=== PATIENT | male | born 1970 | race Caucasian/White ===

== ENCOUNTER → 2017-04-25 | Outpatient (CLI) | payer MEDICARE ==
--- NOTE | 2017-04-25 08:34 | US ---
EXAMINATION TYPE: US abdomen limited DATE OF EXAM: 04/25/2017 COMPARISON: Ultrasound guided biopsy April 22, 2014 CLINICAL HISTORY: R74.8 Elevated Liver enzymes. EXAM MEASUREMENTS: Liver Length: 19.0 cm Gallbladder Wall: 0.4 cm CBD: 0.3 cm Right Kidney: 11.4 x 5.7 x 6.5 cm Pancreas: limited evaluation due to overlying bowel content Liver: enlarged, attenuating, hypoechoic area near rebecca hepatis = 1.7 x 1.6 x 2.2cm (probable focal sparing) Gallbladder: no evidence of stones Evidence for sonographic Gao's sign: No CBD: wnl Right Kidney: no evidence of hydronephrosis or mass Visualized liver remains heterogeneously hyperechoic in appearance. No intrahepatic ductal dilatation is evident. Evaluation for focal masses is suboptimal due to the heterogeneity. IMPRESSION: Heterogeneity of liver is likely on basis of diffuse fatty infiltration. No significant c hange from prior. Correlate with random biopsy results 2013
== END | disposition home or self-care (01) ==
LOC: RADUSWWP 07:03
PROVIDERS: ATTEND Family Medicine
DX: R93.2 Abnormal findings on diagnostic imaging of liver and biliary tract (principal)
CPT/HCPCS: 76705

== ENCOUNTER 2018-06-29 12:18 | Inpatient (IN) | payer MEDICARE ==
[2018-06-29] MEDS ORDERED: SODIUM CHLORIDE 0.9% 500 ML IV STA (12:37)
[2018-06-29] MEDS ORDERED: LORazepam 2 MG/ML INJ IV STA (12:38)
--- NOTE | 2018-06-29 12:38 | ED ---
General Adult HPI - General Chief complaint: Neuro Symptoms/Deficit Stated complaint: lt sided numbness, headache Time Seen by Provider: 06/29/18 12:20 Source: patient, RN notes reviewed Mode of arrival: wheelchair Limitations: no limitations - History of Present Illness Initial comments: This is a 47-year-old male who presents emergency Department with a past medical history significant for rheumatoid arthritis and is on Humira. Patient presents today because at about noon he started having tingling in his face his left arm and left leg. Patient states he never lost sensation just tingling sensation like his whole left side is going to sleep. Patient states he only residual tingling is now in his left hand. Patient also states he had an episode where he thought he passed out everything started turned black he thought he was going to go unconscious. Patient states he never had any chest pain denies difficulty breathing shortness of breath. Patient denies any abdominal pain patient denies nausea vomiting diarrhea. Patient also complains of recent headaches the been intermittent over the last month patient states he has not had a history of headaches prior to that. Patient also states he's been having night sweats and difficulty sleeping over the last month. - Related Data Home Medications Medication Instructions Recorded Confirmed Lisinopril [Zestril] 20 mg PO HS 04/19/14 06/29/18 traMADol HCl [Ultram] 50 mg PO TID PRN 04/19/14 06/29/18 Acetaminophen Tab [Tylenol] 500 - 1,000 mg PO Q6H PRN 06/29/18 06/29/18 Adalimumab [Humira Pen] 40 mg SQ MO 06/29/18 06/29/18 Atorvastatin [Lipitor] 40 mg PO HS 06/29/18 06/29/18 Hydrocodone/Acetaminophen [[place] 1 tab PO BID PRN 06/29/18 06/29/18 10-325] Ibuprofen [Motrin] 800 mg PO TID PRN 06/29/18 06/29/18 Allergies Allergy/AdvReac Type Severity Reaction Status Date / Time Sulfa (Sulfonamide Allergy Unknown Verified 06/29/18 13:06 Antibiotics) Review of Systems ROS Statement: Those systems with pertinent positive or pertinent negative responses have been documented in the HPI. ROS Other: All systems not noted in ROS Statement are negative. Past Medical History Past Medical History: Hypertension, Liver Disease Additional Past Medical History / Comment(s): arthritis, chronic ubaldo wrist pain from trauma History of Any Multi-Drug Resistant Organisms: None Reported Additional Past Surgical History / Comment(s): wrist surgery, hernia when pt was an Past Psychological History: Anxiety Smoking Status: Former smoker Past Alcohol Use History: Occasional Past Drug Use History: None Reported - Past Family History Father Family Medical History: No Reported History General Exam - General Exam Comments Initial Comments: GENERAL: Patient is well-developed and well-nourished. Patient is nontoxic and well- hydrated and is in mild distress. ENT: Neck is soft and supple. No significant lymphadenopathy is noted. Oropharynx is clear. Moist mucous membranes. Neck has full range of motion without eliciting any pain. EYES: The sclera were anicteric and conjunctiva were pink and moist. Extraocular movements were intact and pupils were equal round and reactive to light. Eyelids were unremarkable. PULMONARY: Unlabored respirations. Good breath sounds bilaterally. No audible rales rhonchi or wheezing was noted. CARDIOVASCULAR: There is a regular rate and rhythm without any murmurs gallops or rubs. ABDOMEN: Soft and nontender with normal bowel sounds. No palpable organomegaly was noted. There is no palpable pulsatile mass. SKIN: Skin is clear with no lesions or rashes and otherwise unremarkable. NEUROLOGIC: Patient is alert and oriented x3. Cranial nerves II through XII are grossly intact. Motor and sensory are also intact. Normal speech, volume and content. Symmetrical smile. MUSCULOSKELETAL: Normal extremities with adequate strength and full range of motion. No lower extremity swelling or edema. No calf tenderness. Patient has a contracture on his left fifth digit which she states is chronic. LYMPHATICS: No significant lymphadenopathy is noted PSYCHIATRIC: Normal psychiatric evaluation. Normal interpersonal interactions appears functionally intact in deals appropriately with others. No signs of depression. No signs of anxiety. Limitations: no limitations Course Vital Signs 06/29/18 06/29/18 12:23 13:21 Temperature 99.1 F Pulse Rate 100 86 Respiratory 16 16 Rate Blood Pressure 145/80 173/99 O2 Sat by Pulse 99 98 Oximetry Medical Decision Making - Medical Decision Making EKG shows normal sinus rhythm at 87 bpm GA interval 154 QRS is 96 QT interval 370 QTC is 454. Patient's EKG shows no ST segment elevation or depression or T wave abnormalities are noted. Computed tomography scan of the brain shows no acute abnormality. Chest x-ray shows no acute abnormality. Patient's symptoms have resolved at this time. Patient has had no near syncopal episodes in the emergency department. I spoke with Dr. De Dios she agreed to admit the patient admitted the patient I wrote admitting orders and consult neurology. - Lab Data Result diagrams: 06/29/18 12:40 06/29/18 12:40 Lab Results 06/29/18 06/29/18 06/29/18 Range/Units 12:40 12:40 12:40 WBC 5.1 (3.8-10.6) k/uL RBC 4.87 (4.30-5.90) m/uL Hgb 14.9 (13.0-17.5) gm/dL Hct 43.4 (39.0-53.0) % MCV 89.0 (80.0-100.0) fL MCH 30.5 (25.0-35.0) pg MCHC 34.3 (31.0-37.0) g/dL RDW 14.5 (11.5-15.5) % Plt Count 140 L (150-450) k/uL Neutrophils % 55 % Lymphocytes % 29 % Monocytes % 8 % Eosinophils % 5 % Basophils % 1 % Neutrophils # 2.8 (1.3-7.7) k/uL Lymphocytes # 1.5 (1.0-4.8) k/uL Monocytes # 0.4 (0-1.0) k/uL Eosinophils # 0.3 (0-0.7) k/uL Basophils # 0.0 (0-0.2) k/uL Poikilocytosis Slight PT (9.0-12.0) sec INR (<1.2) APTT (22.0-30.0) sec Sodium 141 (137-145) mmol/L Potassium 4.3 (3.5-5.1) mmol/L Chloride 109 H (98-107) mmol/L Carbon Dioxide 20 L (22-30) mmol/L Anion Gap 12 mmol/L BUN 15 (9-20) mg/dL Creatinine 0.95 (0.66-1.25) mg/dL Est GFR (CKD-EPI)AfAm >90 (>60 ml/min/1.73 sqM) Est GFR (CKD-EPI)NonAf >90 (>60 ml/min/1.73 sqM) Glucose 115 H (74-99) mg/dL Calcium 9.7 (8.4-10.2) mg/dL Total Bilirubin 0.9 (0.2-1.3) mg/dL AST 33 (17-59) U/L ALT 47 (21-72) U/L Alkaline Phosphatase 75 (38-126) U/L Total Creatine Kinase 43 L (55-170) U/L CK-MB (CK-2) 0.6 (0.0-2.4) ng/mL CK-MB (CK-2) Rel Index 1.4 Troponin I <0.012 (0.000-0.034) ng/mL Total Protein 7.4 (6.3-8.2) g/dL Albumin 4.7 (3.5-5.0) g/dL 06/29/18 Range/Units 12:40 WBC (3.8-10.6) k/uL RBC (4.30-5.90) m/uL Hgb (13.0-17.5) gm/dL Hct (39.0-53.0) % MCV (80.0-100.0) fL MCH (25.0-35.0) pg MCHC (31.0-37.0) g/dL RDW (11.5-15.5) % Plt Count (150-450) k/uL Neutrophils % % Lymphocytes % % Monocytes % % Eosinophils % % Basophils % % Neutrophils # (1.3-7.7) k/uL Lymphocytes # (1.0-4.8) k/uL Monocytes # (0-1.0) k/uL Eosinophils # (0-0.7) k/uL Basophils # (0-0.2) k/uL Poikilocytosis PT 10.0 (9.0-12.0) sec INR 1.0 (<1.2) APTT 27.1 (22.0-30.0) sec Sodium (137-145) mmol/L Potassium (3.5-5.1) mmol/L Chloride (98-107) mmol/L Carbon Dioxide (22-30) mmol/L Anion Gap mmol/L BUN (9-20) mg/dL Creatinine (0.66-1.25) mg/dL Est GFR (CKD-EPI)AfAm (>60 ml/min/1.73 sqM) Est GFR (CKD-EPI)NonAf (>60 ml/min/1.73 sqM) Glucose (74-99) mg/dL Calcium (8.4-10.2) mg/dL Total Bilirubin (0.2-1.3) mg/dL AST (17-59) U/L ALT (21-72) U/L Alkaline Phosphatase (38-126) U/L Total Creatine Kinase (55-170) U/L CK-MB (CK-2) (0.0-2.4) ng/mL CK-MB (CK-2) Rel Index Troponin I (0.000-0.034) ng/mL Total Protein (6.3-8.2) g/dL Albumin (3.5-5.0) g/dL Disposition Clinical Impression: Transient cerebral ischemia, Near syncope Disposition: ADMITTED IP TO THIS HOSP Referrals: Yonathan Funez MD [Primary Care Provider] - 1-2 days Time of Disposition: 13:58
[2018-06-29 13:01] LABS: ALT 47 U/L (21-72); AST 33 U/L (17-59); Albumin 4.7 g/dL (3.5-5.0); Alkaline Phosphatase 75 U/L (38-126); Anion Gap 12 mmol/L; Blood Urea Nitrogen 15 mg/dL (9-20); Calcium 9.7 mg/dL (8.4-10.2); Carbon Dioxide 20 mmol/L (22-30); Chloride 109 mmol/L (98-107); Glucose 115 mg/dL (74-99); Potassium 4.3 mmol/L (3.5-5.1); Sodium 141 mmol/L (137-145); Total Bilirubin 0.9 mg/dL (0.2-1.3); Total Protein 7.4 g/dL (6.3-8.2)
[2018-06-29 13:04] LABS: Partial Thromboplastin Time 27.1 sec (22.0-30.0)
--- NOTE | 2018-06-29 13:05 | CT ---
EXAMINATION TYPE: CT brain wo con DATE OF EXAM: 06/29/2018 COMPARISON: NONE HISTORY: Lt sided numbness, BUSTOS, dizziness CT DLP: 945.5 mGycm Automated exposure control for dose reduction was used. FINDINGS: Central structures are midline. There is no evidence of hydrocephalus. No acute focal lesion, mass ef fect or midline shift is seen. I do not see evidence of intracranial blood. Visualized portions of the paranasal sinuses and mastoids are clear. The bony calvarium is intact. IMPRESSION: NO ACUTE INTRACRANIAL ABNORMALITY.
--- NOTE | 2018-06-29 13:09 | XR ---
EXAMINATION TYPE: XR chest 2V DATE OF EXAM: 06/29/2018 HISTORY: altered mental status. REFERENCE: NONE. FINDINGS: The lungs are clear. Pleural spaces are clear. The heart is not enlarged. IMPRESSION: NORMAL CHEST.
[2018-06-29 13:12] LABS: Basophils % (A) 1 %; Eosinophils # (A) 0.3 k/uL (0-0.7); Eosinophils % (A) 5 %; HCT 43.4 % (39.0-53.0); HGB 14.9 gm/dL (13.0-17.5); Lymphocytes # (A) 1.5 k/uL (1.0-4.8); Lymphocytes % (A) 29 %; MCH 30.5 pg (25.0-35.0); MCHC 34.3 g/dL (31.0-37.0); Mean Platelet Volume 7.6; Monocytes # (A) 0.4 k/uL (0-1.0); Monocytes % (A) 8 %; Neutrophils # (A) 2.8 k/uL (1.3-7.7); Neutrophils % (A) 55 %; Platelet Count 140 k/uL (150-450); Poikilocytosis Slight; RBC 4.87 m/uL (4.30-5.90); RDW 14.5 % (11.5-15.5); WBC 5.1 k/uL (3.8-10.6)
[2018-06-29 13:16] LABS: Creatine Kinase 43 U/L (55-170)
[2018-06-29 13:29] LABS: Creatine Kinase MB 0.6 ng/mL (0.0-2.4); Troponin I <0.012 ng/mL (0.000-0.034)
[2018-06-29] MEDS ORDERED: MORPHINE SULFATE 4 MG/ML SYRINGE IVP STA (16:47)
[2018-06-29] MEDS ORDERED: VANCOMYCIN 2,000 MG in SODIUM CHLORIDE 0.9% 500 ML IVPB SCH (17:15)
--- NOTE | 2018-06-29 17:19 | P.HPIM ---
History of Present Illness H&P Date: 06/29/18 Chief Complaint: Headache, left-sided tingling Patient is a 47-year-old male with PMH of hypertension and rheumatoid arthritis that presents to the emergency department for headache, night sweats, left- sided tingling. Patient is accompanied by his who is giving me the history. Patient currently has a towel over his head, states he cannot speak because it worsens his migraine. Patient reports headache over the past 2 months, progressively getting worse. Over the last week, patient has been experiencing multiple episodes of nausea and vomiting, photophobia, tunnel vision. His headaches are also associated with fevers, night sweats, stiff neck. Patient reports that his headache started after his PCP started him on hydrochlorothiazide 12.5 mg by mouth daily. However, discontinuation of hydrochlorothiazide over the last 30 days has not resulted in relief of his headache. Patient decided to seek medical attention when he started to experience numbness and tingling that started in his left leg and worked up to his left lower base, neck, shoulder and arm. Of note patient sees a block mason, takes Humira injections. In the ED, CT of the head was negative. Chest x-ray was normal. EKG showed normal sinus rhythm. Patient is admitted for CVA workup. Review of Systems All systems: negative Past Medical History Past Medical History: Hypertension, Liver Disease Additional Past Medical History / Comment(s): arthritis, chronic ubaldo wrist pain from trauma History of Any Multi-Drug Resistant Organisms: None Reported Additional Past Surgical History / Comment(s): wrist surgery, hernia when pt was an infant Past Psychological History: Anxiety Smoking Status: Former smoker Past Alcohol Use History: Occasional Past Drug Use History: None Reported - Past Family History Father Family Medical History: No Reported History Medications and Allergies Home Medications Medication Instructions Recorded Confirmed Type Lisinopril [Zestril] 20 mg PO HS 04/19/14 06/29/18 History traMADol HCl [Ultram] 50 mg PO TID PRN 04/19/14 06/29/18 History Acetaminophen Tab [Tylenol] 500 - 1,000 mg PO Q6H PRN 06/29/18 06/29/18 History Adalimumab [Humira Pen] 40 mg SQ MO 06/29/18 06/29/18 History Atorvastatin [Lipitor] 40 mg PO HS 06/29/18 06/29/18 History Hydrocodone/Acetaminophen [[place] 1 tab PO BID PRN 06/29/18 06/29/18 History 10-325] Ibuprofen [Motrin] 800 mg PO TID PRN 06/29/18 06/29/18 History Allergies Allergy/AdvReac Type Severity Reaction Status Date / Time Sulfa (Sulfonamide Allergy Unknown Verified 06/29/18 13:06 Antibiotics) Physical Exam Vitals: Vital Signs Temp Pulse Resp BP Pulse Ox 06/29/18 14:30 16 06/29/18 14:21 97.8 F 78 16 171/88 98 06/29/18 13:21 86 16 173/99 98 06/29/18 12:23 99.1 F 100 16 145/80 99 Intake and Output 06/29/18 06/29/18 06/29/18 06:59 14:59 22:59 Other: Weight 104.326 kg General: Towel over his head, mild distress, appears at stated age Derm: warm, dry Head: atraumatic, normocephalic, symmetric Eyes: EOMI, no lid lag, anicteric sclera Mouth: no lip lesion, mucus membranes moist Cardiovascular: S1S2 reg, no murmur, positive posterior tibial pulse bilateral, Lungs: CTA bilateral, no rhonchi, no rales , no accessory muscle use Abdominal: soft, nontender to palpation, no guarding, no appreciable organomegaly Ext: no gross muscle atrophy, no edema, no contractures Neuro: CN II-XI grossly intact, no focal neuro deficits Psych: Alert, oriented, appropriate affect Results CBC & Chem 7: 06/29/18 12:40 06/29/18 12:40 Labs: Abnormal Lab Results - Last 24 Hours (Table) 06/29/18 06/29/18 06/29/18 Range/Units 12:40 12:40 12:40 Plt Count 140 L (150-450) k/uL Chloride 109 H (98-107) mmol/L Carbon Dioxide 20 L (22-30) mmol/L Glucose 115 H (74-99) mg/dL Total Creatine Kinase 43 L (55-170) U/L Thrombosis Risk Factor Assmnt - Choose All That Apply Each Factor Represents 1 point: Age 41-60 years Thrombosis Risk Factor Assessment Total Risk Factor Score: 1 Thrombosis Risk Factor Assessment Level: Low Risk Assessment and Plan Assessment: Assessment and plan 1. BUSTOS + L sided numbness - Likely to be Migraine but given history and PMH need to r/o CVA and Meningitis given immunocompromised state. - r/o CVA - CT brain negative - Pain control: Tylenol 500 mg PO Q6H, Toradol 30 mg IV Q6H PRN - Antibiotics: Ceftriaxone IV QD, Vancomycin IV - Patient is afebrile with no leukocytosis. Need to proceed with CVA workup. Start IV Abx empirically. FU MRI brain, Echo, CUS, A1c, Lipid panel, Neurology. FU Anesthesia for LP. 2. HTN: BP 171/88. Continue Lisinopril 20 mg PO QD. Monitor vitals, adjust medications as necessary. 3. RA: On Humira at home. Hold. 4. DVT/GI Prophylaxis: Lovenox 40 SUBCUT QD. Protonix 40 mg PO QD.
[2018-06-29] MEDS: cefTRIAXone IN SWFI 1,000 MG/10 ML SYRINGE IVP SCH (17:54)
[2018-06-29] MEDS: KETOROLAC 30 MG/ML 1 ML VIAL IVP SCH ×2 (19:53→23:14)
[2018-06-29] MEDS: HYDROcodone/APAP 10-325MG 1 EACH TAB PO PRN (21:10)
[2018-06-29] MEDS: ATORVASTATIN 40 MG TAB PO SCH (23:37)
[2018-06-29] MEDS: LISINOPRIL 20 MG TAB PO SCH (23:37)
[2018-06-29 23:51] LABS: Cholesterol 120 mg/dL (<200); HDL Cholesterol 29 mg/dL (40-60); LDL Cholesterol,Calculated 49 mg/dL (0-99); Triglycerides 210 mg/dL (<150)
--- NOTE | 2018-06-30 00:31 | P.CNNES ---
History of Present Illness Consult date: 06/29/18 Reason for Consult: Patient admitted with headaches and left sided numbness. History of Present Illness: This patient is a 47-year-old right-handed white male was brought into the emergency room today for evaluation of left-sided numbness and chronic headache. Patient was brought to [facility] ER for further evaluation due to his ongoing symptoms of chronic headache for the past 2 months. He also today developed left-sided numbness. He was seen in the ER by Dr. Xie. There was concern for possibility of TIA and he was sent for a computed tomography scan of the brain for further evaluation. CAT scan of the brain revealed no acute intracranial abnormality. His symptoms of left-sided numbness did resolve after one hour. Patient states that over the past 2 months he has been having chronic headaches. His primary care physician Dr. Funez apparently has not seen him recently. He was seen earlier this week by Dr. Velarde who is his chemical plant operator supervisor and is treating him for rheumatoid arthritis. He has been using Humira as his primary treatment for the rheumatoid condition. He has been following closely for the last several years with his chemical plant operator supervisor. Apparently he did complain of headaches to her recently but no other intervention was mentioned. The patient states he has been experiencing night sweats off-and-on for the past several months. He has had some low-grade temperatures as well. His temperature today in the emergency room was within normal limits at 97.1. He did not experience her complain of any symptoms of neck pain or nuchal rigidity. He did undergo a chest x-ray in the ER which was reported normal. The patient denies any previous history of TIA or stroke. Given his history of rheumatoid arthritis and immunocompromised state due to his long-term use of Humira he is at risk for subtle infection. Given his 2 month history of headache we have recommended he undergo a lumbar puncture tomorrow morning for further evaluation. Doubt that he has underlying meningitis but would proceed with LP at this time for further evaluation. As noted he is currently afebrile and has no signs of meningeal irritation or nuchal rigidity on examination at bedside today. We would recommend however to complete a lumbar puncture to rule out any LEGAL RECOVERY SPECIALIST infection. We have recommended the patient undergo a complete stroke evaluation given his episode of left-sided paresthesias and numbness. His stroke risk factors include hypertension and hyperlipidemia. The patient currently is on disability. He states he has been having chronic neck pain and joint pain due to his long-standing history of rheumatoid arthritis. He did not experience any slurred speech or visual changes with this recent episode of left-sided numbness. He does have a past history of fatty liver which apparently has been evaluated previously. The patient is now been admitted and neurology has been consulted for further evaluation and recommendations. Review of Systems Constitutional: Reports chronic headaches, Denies chills, Denies fever Eyes: denies blurred vision, denies pain Ears, nose, mouth and throat: Denies headache, Denies sore throat Cardiovascular: Denies chest pain, Denies shortness of breath Respiratory: Denies cough Gastrointestinal: Denies abdominal pain, Denies diarrhea, Denies nausea, Denies vomiting Musculoskeletal: Denies myalgias Integumentary: Denies pruritus, Denies rash Neurological: Reports headaches, Reports paresthesias, Reports tingling, Denies numbness, Denies weakness Psychiatric: Denies anxiety, Denies depression Endocrine: Denies fatigue, Denies weight change Past Medical History Past Medical History: Hypertension Additional Past Medical History / Comment(s): arthritis, chronic ubaldo wrist pain from trauma History of Any Multi-Drug Resistant Organisms: None Reported Additional Past Surgical History / Comment(s): wrist surgery, hernia when pt was an infant Past Anesthesia/Blood Transfusion Reactions: No Reported Reaction Past Psychological History: Anxiety Additional Psychological History / Comment(s): re procedure Smoking Status: Former smoker Past Alcohol Use History: Occasional Past Drug Use History: None Reported - Past Family History Father Family Medical History: No Reported History Medications and Allergies Home Medications Medication Instructions Recorded Confirmed Type Lisinopril [Zestril] 20 mg PO HS 04/19/14 06/29/18 History traMADol HCl [Ultram] 50 mg PO TID PRN 04/19/14 06/29/18 History Acetaminophen Tab [Tylenol] 500 - 1,000 mg PO Q6H PRN 06/29/18 06/29/18 History Adalimumab [Humira Pen] 40 mg SQ MO 06/29/18 06/29/18 History Atorvastatin [Lipitor] 40 mg PO HS 06/29/18 06/29/18 History Hydrocodone/Acetaminophen [[place] 1 tab PO BID PRN 06/29/18 06/29/18 History 10-325] Ibuprofen [Motrin] 800 mg PO TID PRN 06/29/18 06/29/18 History Allergies Allergy/AdvReac Type Severity Reaction Status Date / Time Sulfa (Sulfonamide Allergy Unknown Verified 06/29/18 13:06 Antibiotics) Physical Examination - Vital Signs Vital Signs: Vital Signs Temp Pulse Pulse Resp BP BP Pulse Ox 06/29/18 18:10 98.7 F 82 16 152/86 99 06/29/18 14:30 16 06/29/18 14:21 97.8 F 78 16 171/88 98 06/29/18 13:21 86 16 173/99 98 06/29/18 12:23 99.1 F 100 16 145/80 99 Intake and Output 06/29/18 06/29/18 06/30/18 14:59 22:59 06:59 Other: Weight 104.326 kg - Constitutional General appearance: average body habitus, cooperative - EENT EENT: PERRL, mucous membranes moist - Respiratory Respiratory: lungs clear, normal breath sounds - Cardiovascular Cardiovascular: regular rate, normal S1, normal S2 Extremities: no peripheral edema bilaterally - Gastrointestinal Gastrointestinal: normoactive bowel sounds - Integumentary Integumentary: normal - Neurologic Cranial nerve examination: PERRL, EOMI, VFF, V1/V2/V3 grossly intact, face symmetric, intact gag reflex, intact corneal reflex, normal palatal elevation Speech examination: intact Sensorimotor examination: intact Motor examination - right side: 4/5: biceps, triceps, wrist flexion, wrist extension, snowmobile mechanic, hip flexors, knee extensors, dorsiflexion, toe extension (EHL) , plantarflexion Motor examination - left side: 4/5: biceps, triceps, wrist flexion, wrist extension, snowmobile mechanic, hip flexors, knee extensors, dorsiflexion, toe extension (EHL) , plantarflexion Detailed sensory examination: intact Reflex and gait examination: intact Reflexes: 1+: ankle, bicep, knee, tricep - Musculoskeletal Musculoskeletal: no pain - Psychiatric Psychiatric: mood/affect appropriate, cooperative Results - Laboratory Findings CBC and BMP: 06/29/18 12:40 06/29/18 12:40 Abnormal Lab Findings: Abnormal Labs 06/29/18 06/29/18 06/29/18 12:40 12:40 12:40 Plt Count 140 L Chloride 109 H Carbon Dioxide 20 L Glucose 115 H Total Creatine Kinase 43 L Triglycerides HDL Cholesterol 06/29/18 12:40 Plt Count Chloride Carbon Dioxide Glucose Total Creatine Kinase Triglycerides 210 H HDL Cholesterol 29 L Assessment and Plan (1) TIA (transient ischemic attack) Current Visit: Yes Status: Acute Code(s): G45.9 - TRANSIENT CEREBRAL ISCHEMIC ATTACK, UNSPECIFIED SNOMED Code(s): 627683108 (2) Chronic headache Current Visit: Yes Status: Acute Code(s): R51 - HEADACHE SNOMED Code(s): 702606449 (3) Rheumatoid arthritis Current Visit: Yes Status: Acute Code(s): M06.9 - RHEUMATOID ARTHRITIS, UNSPECIFIED SNOMED Code(s): 67020433 (4) Near syncope Current Visit: Yes Status: Acute Code(s): R55 - SYNCOPE AND COLLAPSE SNOMED Code(s): 262632326 Plan: This patient is a 47-year-old right-handed white male who was admitted to [facility] for evaluation of chronic headaches and left-sided numbness. Patient developed sudden left arm face and leg numbness that came on suddenly and lasted about 1 hour in duration and quickly resolved. He has been dealing with chronic headaches for over 2 months. He has a history of underlying rheumatoid arthritis and does follow with the chemical plant operator supervisor. He has been taking Humira as primary treatment for his RA. The patient was evaluated in the emergency room by Dr. Xie. He underwent a computed tomography scan of the brain which was reported normal with no acute intracranial abnormality. On examination at bedside the patient is afebrile. He has no nuchal rigidity or neck stiffness on examination. We have recommended the patient to complete a lumbar puncture tomorrow morning to rule out any signs of infection given his immunocompromised state secondary to his rheumatoid arthritis and long-term use of Humira. We have recommended a complete stroke evaluation for this patient. Sclerae history suggests right hemispheric TIA. We will order MRI/MRA of the brain for this patient. Further evaluation will be given ending his test results. His overall prognosis at this time remains guarded. We will continue close neurological follow-up with this patient during this admission. Time with Patient: Greater than 30
[2018-06-30] MEDS: KETOROLAC 30 MG/ML 1 ML VIAL IVP SCH ×4 (06:04→23:22)
[2018-06-30] MEDS: PANTOPRAZOLE 40 MG TABLET PO SCH (08:48)
[2018-06-30] MEDS: HYDROcodone/APAP 10-325MG 1 EACH TAB PO PRN (09:00)
--- NOTE | 2018-06-30 12:16 | ECHOF ---
Referral Reason:rule out CVA MEASUREMENTS -------- HEIGHT: 185.4 cm WEIGHT: 104.3 kg BP: 121/68 RVIDd: 3.4 cm (< 3.3) IVSd: 1.3 cm (0.6 - 1.1) LVIDd: 4.0 cm (3.9 - 5.3) LVPWd: 1.3 cm (0.6 - 1.1) IVSs: 1.8 cm LVIDs: 2.8 cm LVPWs: 1.5 cm LA Diam: 3.7 cm (2.7 - 3.8) LAESV Index (A-L): 20.41 ml/m Ao Diam: 2.7 cm (2.0 - 3.7) AV Cusp: 2.4 cm (1.5 - 2.6) MV EXCURSION: 15.618 mm (> 18.000) MV EF SLOPE: 101 mm/s (70 - 150) EPSS: 0.4 cm MV E Hansel: 0.85 m/s MV DecT: 284 ms MV A Hansel: 0.79 m/s MV E/A Ratio: 1.07 RAP: 5.00 mmHg RVSP: 20.73 mmHg FINDINGS -------- Sinus rhythm. This was a technically good study. The left ventricular size is normal. There is mild concentric left ventricular hypertrophy. Overa ll left ventricular systolic function is normal with, an EF between 55 - 60 %. The right ventricle is mildly enlarged. Normal LA size by volume 22+/-6 ml/m2. The right atrium is normal in size. The aortic valve is trileaflet and appears structurally normal. Mild mitral annular calcification present. There is trace to mild mitral regurgitation. Trace tricuspid regurgitation present. Right ventricular systolic pressure is normal at < 35 mmHg. Trace/mild (physiologic) pulmonic regurgitation. The aortic root size is normal. Normal inferior vena cava with normal inspiratory collapse consistent with estimated right atrial pre ssure of 5 mmHg. There is no pericardial effusion. CONCLUSIONS -------- 1. Sinus rhythm. 2. This was a technically good study. 3. The left ventricular size is normal. 4. There is mild concentric left ventricular hypertrophy. 5. Overall left ventricular systolic function is normal with, an EF between 55 - 60 %. 6. The right ventricle is mildly enlarged. 7. Normal LA size by volume 22+/-6 ml/m2. 8. The right atrium is normal in size. 9. The aortic valve is trileaflet and appears structurally normal. 10. Mild mitral annular calcification present. 11. There is trace to mild mitral regurgitation. 12. Trace tricuspid regurgitation present. 13. Right ventricular systolic pressure is normal at < 35 mmHg. 14. Trace/mild (physiologic) pulmonic regurgitation. 15. The aortic root size is normal. 16. Normal inferior vena cava with normal inspiratory collapse consistent with estimated right atrial pressure of 5 mmHg. 17. There is no pericardial effusion. [employer]: Sophie Orellana RDCS
[2018-06-30] MEDS: VANCOMYCIN 1,750 MG in SODIUM CHLORIDE 0.9% 500 ML IVPB SCH ×2 (12:48→21:03)
--- NOTE | 2018-06-30 13:48 | P.PN ---
Subjective Progress Note Date: 06/30/18 Principal diagnosis: headache. Patient was seen and examined. No acute events overnight.patient reports great improvement in his headache since yesterday. Patient states that the morphine injection yesterday did not work, however the combination of [place] and Toradol injections has been working. patient currently states he has a 3 out of 10 headache, bifrontal, associated with photophobia and sensitivity to loud noises. No nausea or vomiting this morning. No fever or chills. Objective - Vital Signs Vital signs: Vital Signs Temp 97.2 F L 06/30/18 12:00 Pulse 72 06/30/18 12:00 Resp 18 06/30/18 12:00 BP 128/72 06/30/18 12:00 Pulse Ox 97 06/30/18 12:00 Intake & Output 06/29/18 06/30/18 06/30/18 18:59 06:59 18:59 Intake Total 980 240 Balance 980 240 Weight 104.326 kg Intake: Intake, IV Titration 500 Amount Vancomycin 2,000 mg In 500 Sodium Chloride 0.9% 500 ml @ 167 mls/hr IVPB Q24H [facility] Rx#:[id number] Oral 480 240 Other: Voiding Method Toilet # Voids 2 - Exam General: No acute distress, appears at stated age Derm: warm, dry Neck: Normal range of motion. no JVD. Brudzinski and Kernig sign negative. Head: atraumatic, normocephalic, symmetric Eyes: EOMI, no lid lag, anicteric sclera Mouth: no lip lesion, mucus membranes moist Cardiovascular: S1S2 reg, no murmur, positive posterior tibial pulse bilateral Lungs: CTA bilateral, no rhonchi, no rales , no accessory muscle use Abdominal: soft, nontender to palpation, no guarding, no appreciable organomegaly Ext: no gross muscle atrophy, no edema, no contractures Neuro: CN II-XI grossly intact, strength 5 out of 5 in all 4 extremities, sensation intact to touch in all 4 extremities Psych: Alert, oriented, appropriate affect - Labs CBC & Chem 7: 06/29/18 12:40 06/29/18 12:40 Labs: Abnormal Lab Results - Last 24 Hours (Table) 06/29/18 06/29/18 Range/Units 12:40 12:40 Total Creatine Kinase 43 L (55-170) U/L Triglycerides 210 H (<150) mg/dL HDL Cholesterol 29 L (40-60) mg/dL Assessment and Plan Assessment: Assessment and plan 1. BUSTOS + L sided numbness - Likely to be Migraine but given history and PMH need to r/o CVA and Meningitis given immunocompromised state. - r/o CVA - CT brain negative - Echo shows EF 55-60% - Lipid panel shows LDL 49 T. Chol 120 TG 210, [place] 10 BID PRN - Pain control: Tylenol 500 mg PO Q6H, Toradol 30 mg IV Q6H PRN - Antibiotics: Ceftriaxone IV QD, Vancomycin IV - Patient is afebrile with no leukocytosis. Need to proceed with CVA workup. Continue IV Abx empirically. FU MRI brain, MRA head and neck, A1c, Neurology. FU Anesthesia for LP. 2. HTN: BP 128/72. Continue Lisinopril 20 mg PO QD. Monitor vitals, adjust medications as necessary. 3. RA: On Humira at home. Hold. 4. DVT/GI Prophylaxis: Lovenox 40 SUBCUT QD. Protonix 40 mg PO QD.
--- NOTE | 2018-06-30 13:50 | US ---
EXAMINATION TYPE: US carotid duplex BILAT DATE OF EXAM: 06/30/2018 COMPARISON: NONE CLINICAL HISTORY: rule out CVA. Left-sided numbness. Headache. Dizziness. EXAM MEASUREMENTS: RIGHT: Peak Systolic Velocity (PSV) cm/sec ----- Right CCA: 84.2 ----- Right ICA: 82.7 ----- Right ECA: 68.6 ICA/CCA ratio: 1.0 RIGHT: End Diastole cm/sec ----- Right CCA: 17.3 ----- Right ICA: 30.4 ----- Right ECA: 10.9 LEFT: Peak Systolic Velocity (PSV) cm/sec ----- Left CCA: 69.7 ----- Left ICA: 73.9 ----- Left ECA: 82.6 ICA/CCA ratio: 1.1 LEFT: End Diastole cm/sec ----- Left CCA: 17.1 ----- Left ICA: 15.5 ----- Left ECA: 14.3 VERTEBRALS (direction of flow): Right Vertebral: Antegrade Left Vertebral: Antegrade Rhythm: Normal Minimal atherosclerotic changes. No significant velocity elevations. IMPRESSION: Mild degree of grayscale atheromatous plaquing with no sonographically evident hemodynam ically significant stenosis within either visualized carotid arterial system.
[2018-06-30] MEDS: ACETAMINOPHEN TAB 500 MG TAB PO PRN ×2 (16:23→21:14)
--- NOTE | 2018-06-30 17:16 | MR ---
EXAMINATION TYPE: MR angio head wo con DATE OF EXAM: 06/30/2018 COMPARISON: None HISTORY: chronic headaches x 2 months TECHNIQUE: Time of flight images focusing on the [place] were performed without contrast. FINDINGS: There is demonstration of arterial flow in the vertebrobasilar artery system. There is piero rial flow in the anterior middle and posterior cerebral arteries. There is arterial flow in both dist al internal carotid arteries. There is patency of the right posterior communicating artery. I see no evidence of aneurysm or neovascularity. There is no mass effect. There is no evidence of stenosis. IMPRESSION: Normal MR angiogram of the brain.
[2018-06-30] MEDS: cefTRIAXone IN SWFI 1,000 MG/10 ML SYRINGE IVP SCH (17:39)
--- NOTE | 2018-06-30 20:05 | MR ---
EXAMINATION TYPE: MR brain wo con DATE OF EXAM: 06/30/2018 COMPARISON: None HISTORY: chronic headaches x 2 months, tingling Standard multiplanar, multisequence MRI departmental protocol Multiplanar, multisequence images of the brain were acquired. Diffusion weighted imaging was performe d. FINDINGS: Ventricles and sulci appear normal. There is no mass effect nor midline shift. There is no sign of intracranial hemorrhage. There is no evidence of cerebral edema. The miranda-white matter struct ures have fairly normal signal pattern. There is a 3 mm focus of increased signal in the white matter right posterior temporal lobe. Brainstem appears normal. There is mucosal thickening in the maxillar y and ethmoid sinuses. Sella turcica appears normal. IMPRESSION: Essentially negative MR scan of the brain. Mild sinusitis noted.
[2018-06-30] MEDS: ATORVASTATIN 40 MG TAB PO SCH (21:14)
[2018-06-30] MEDS: LISINOPRIL 20 MG TAB PO SCH (21:14)
[2018-06-30] MEDS: ENOXAPARIN 40 MG/0.4 ML SYRINGE SQ SCH (21:14)
--- NOTE | 2018-06-30 21:37 | P.PN ---
Subjective Progress Note Date: 06/30/18 This patient is a 47-year-old male who was admitted to hospital yesterday for symptoms of TIA and chronic headache. Patient was admitted with severe headache symptoms which responded yesterday to combination of [place] and Toradol injections. His headaches are much better today and he was sent for MRI MRA of the brain. MRA of the brain was completed and is normal with no evidence of cerebral aneurysm. MRI results of the brain are still pending today. Patient also underwent carotid Doppler ultrasound which came back negative with no evidence of carotid artery stenosis. He was scheduled to undergo lumbar puncture today however this was not completed. Apparently anesthesia is aware of this request and we will see if this can be completed to rule out any possibility of meningitis however this seems less likely. Patient otherwise seems to be doing fairly well. His headache symptoms have improved from initial presentation. Patient did undergo MRI of the brain and MRA of the brain results of which were reviewed today with the patient. Both studies came back normal with no evidence of any acute abnormalities. Patient states he does suffer from sinus and ALLERGIES which may be a contributing factor for his headache symptoms. He is still awaiting to have lumbar puncture procedure done tomorrow morning by anesthesia and we will await those results. If his spinal fluid results are negative for any evidence of SCOURER infection he may be considered for discharge home. His neurological examination today is nonfocal. We will continue close neurological follow-up the patient. His overall prognosis remains guarded. Objective - Vital Signs Vital signs: Vital Signs Temp 98.3 F 06/30/18 16:00 Pulse 77 06/30/18 16:00 Resp 18 06/30/18 16:00 BP 132/76 06/30/18 16:00 Pulse Ox 96 06/30/18 16:00 Intake & Output 06/30/18 06/30/18 07/01/18 06:59 18:59 06:59 Intake Total 980 480 Balance 980 480 Intake: Intake, IV Titration 500 Amount Vancomycin 2,000 mg In 500 Sodium Chloride 0.9% 500 ml @ 167 mls/hr IVPB Q24H [facility] Rx#:[id number] Oral 480 480 Other: Voiding Method Toilet # Voids 2 - Exam Physical examination: PHYSICAL EXAMINATION: Patient is resting comfortably in bed. VITAL SIGNS: Blood pressure is [117/73]. Heart rate is [72]. Respiration is [18] . Temperature is [96.5]. HEENT: Head is atraumatic, neck is supple, there were no carotid bruits. CHEST: Lungs are clear to auscultation and percussion. CARDIAC: S1, S2 normal rate and rhythm. There is no murmur. ABDOMEN: Soft and nontender. Bowel sounds are present. EXTREMITIES: There is no pedal edema. Peripheral pulses are present. Neurological examination: Patient has a nonfocal neurological examination today. Patient's headache symptoms are much improved today. - Labs CBC & Chem 7: 06/29/18 12:40 06/29/18 12:40 Labs: Abnormal Lab Results - Last 24 Hours (Table) 06/29/18 Range/Units 12:40 Triglycerides 210 H (<150) mg/dL HDL Cholesterol 29 L (40-60) mg/dL Assessment and Plan (1) TIA (transient ischemic attack) Current Visit: Yes Status: Acute Code(s): G45.9 - TRANSIENT CEREBRAL ISCHEMIC ATTACK, UNSPECIFIED SNOMED Code(s): 524481357 (2) Chronic headache Current Visit: Yes Status: Acute Code(s): R51 - HEADACHE SNOMED Code(s): 696148318 (3) Rheumatoid arthritis Current Visit: Yes Status: Acute Code(s): M06.9 - RHEUMATOID ARTHRITIS, UNSPECIFIED SNOMED Code(s): 63627161 (4) Near syncope Current Visit: Yes Status: Acute Code(s): R55 - SYNCOPE AND COLLAPSE SNOMED Code(s): 920208037 Plan: This patient is a 47-year-old right-handed white male who was admitted to [facility] for evaluation of chronic headaches and left-sided numbness. Patient developed sudden left arm face and leg numbness that came on suddenly and lasted about 1 hour in duration and quickly resolved. He has been dealing with chronic headaches for over 2 months. He has a history of underlying rheumatoid arthritis and does follow with the remote sensing specialist. He has been taking Humira as primary treatment for his RA. The patient was evaluated in the emergency room by Dr. Xie. He underwent a computed tomography scan of the brain which was reported normal with no acute intracranial abnormality. On examination at bedside the patient is afebrile. He has no nuchal rigidity or neck stiffness on examination. We have recommended the patient to complete a lumbar puncture tomorrow morning to rule out any signs of infection given his immunocompromised state secondary to his rheumatoid arthritis and long-term use of Humira. We have recommended a complete stroke evaluation for this patient. Sclerae history suggests right hemispheric TIA. We will order MRI/MRA of the brain for this patient. Patient was able to complete MRI/MRA of the brain today. Results are as noted above. Both studies did come back normal and we review the results today with the patient. He is scheduled to undergo lumbar puncture tomorrow to rule out any possibility of SCOURER infection. He seems to be less likely as he continues to show improvement with his overall condition and headaches. Given his immunocompromised state however we will proceed with LP tomorrow morning by anesthesia. If his LP is negative he may be considered for discharge home. Further evaluation will be given ending his test results. His overall prognosis at this time remains guarded. We will continue close neurological follow-up with this patient during this admission.
[2018-07-01] MEDS: KETOROLAC 30 MG/ML 1 ML VIAL IVP SCH ×4 (05:14→23:38)
[2018-07-01] MEDS: VANCOMYCIN 1,750 MG in SODIUM CHLORIDE 0.9% 500 ML IVPB SCH ×3 (05:14→23:42)
[2018-07-01] MEDS: PANTOPRAZOLE 40 MG TABLET PO SCH (06:48)
[2018-07-01] MEDS: ACETAMINOPHEN TAB 500 MG TAB PO PRN ×2 (06:49→15:20)
--- NOTE | 2018-07-01 10:11 | P.PN ---
Subjective Progress Note Date: 07/01/18 Principal diagnosis: Headache Patient was seen and examined. No acute events overnight. Patient reports great improvement in his headaches. No numbness weakness or tingling of the extremities. Headache improves with Tylenol and Toradol. Patient waiting for lumbar puncture. Objective - Vital Signs Vital signs: Vital Signs Temp 98.5 F 07/01/18 04:15 Pulse 76 07/01/18 04:15 Resp 18 07/01/18 04:15 BP 142/78 07/01/18 04:15 Pulse Ox 99 07/01/18 04:15 Intake & Output 06/30/18 07/01/18 07/01/18 18:59 06:59 18:59 Intake Total 480 740 Output Total 300 Balance 480 440 Weight 99.7 kg Intake: Intake, IV Titration 500 Amount Vancomycin 1,750 mg In 500 Sodium Chloride 0.9% 500 ml @ 167 mls/hr IVPB Q8H [facility] Rx#:[id number] Oral 480 240 Output: Urine 300 Other: Voiding Method Toilet # Voids 1 - Exam General: No acute distress, appears at stated age Derm: warm, dry Neck: Normal range of motion. no JVD. Head: atraumatic, normocephalic, symmetric Eyes: EOMI, no lid lag, anicteric sclera Mouth: no lip lesion, mucus membranes moist Cardiovascular: S1S2 reg, no murmur, positive posterior tibial pulse bilateral Lungs: CTA bilateral, no rhonchi, no rales , no accessory muscle use Abdominal: soft, nontender to palpation, no guarding, no appreciable organomegaly Ext: no gross muscle atrophy, no edema, no contractures Neuro: CN II-XI grossly intact, strength 5 out of 5 in all 4 extremities, sensation intact to touch in all 4 extremities Psych: Alert, oriented, appropriate affect - Labs CBC & Chem 7: 06/29/18 12:40 06/29/18 12:40 Assessment and Plan Assessment: Assessment and plan 1. BUSTOS + L sided numbness - Likely to be Migraine but given history and PMH need to r/o CVA and Meningitis given immunocompromised state. - r/o CVA - CT brain negative - Echo shows EF 55-60% - Lipid panel shows LDL 49 T. Chol 120 TG 210 - MRA neck: Normal - MRI brain: Negative - r/o Meningitis - LP performed 07/01 - Pain control: Tylenol 500 mg PO Q6H, Toradol 30 mg IV Q6H PRN, [place] 10 PRN - Antibiotics: Ceftriaxone IV QD, Vancomycin IV - Patient is afebrile with no leukocytosis. Need to proceed with CVA workup. Continue IV Abx empirically. FU CSF analysis results, A1c, Neurology, PT/OT 2. HTN: BP 142/78. Continue Lisinopril 20 mg PO QD. Monitor vitals, adjust medications as necessary. 3. RA: On Humira at home. Hold. 4. DVT/GI Prophylaxis: Lovenox 40 SUBCUT QD. Protonix 40 mg PO QD. Stroke ruled out. Patient continues to show great improvement. He is pending LP to rule out infectious cause.
--- NOTE | 2018-07-01 10:22 | EEG ---
ELECTROENCEPHALOGRAM REPORT DATE OF EE06/30/2018 ELECTROENCEPHALOGRAPHIC EXAMINATION REPORT: INDICATION FOR EXAMINATION: This patient is a 47-year-old male being evaluated for left-sided numbness and headache. AGE: [age]. EEG FINDINGS: A routine 21-channel awake digital EEG recording was accomplished utilizing the 10-20 international system with bipolar and referential montages. The background activity in the most alert resting state consists of a low to medium amplitude, fairly well developed and well sustained 8 Hz activity over the posterior head regions. This posterior rhythm attenuates to eye opening. There is a small amount of low amplitude 18-20 Hz beta activity seen maximally over the anterior head regions. Muscle and movement artifact was observed on a few occasions during the tracing. Hyperventilation was not performed. Photic stimulation at flash frequencies of 2-30 Hz produced a good symmetrical occipital driving response. No epileptiform discharges were seen. IMPRESSION: This EEG is within normal limits for the patient's age. The EEG failed to reveal any focal, lateralized, or epileptiform abnormalities. Clinical correlation is recommended. MMODL / IJN: [id number] /
--- NOTE | 2018-07-01 10:44 | P.PN ---
Progress Note - Text Progress Note Date: 07/01/18 Patient is scheduled to have diagnostic lumbar puncture,to rule out meningitis , the procedure, appendectomy done today because patient received Lovenox dose , today in the morning , we have to reschedule the procedure for tomorrow morning, and we have to hold ,the Lovenox AM does
[2018-07-01] MEDS: ENOXAPARIN 40 MG/0.4 ML SYRINGE SQ SCH ×2 (10:48→10:49)
[2018-07-01] MEDS ORDERED: VANCOMYCIN TROUGH DUE 1 EACH MISC MISCELLANE ONE (11:00)
[2018-07-01 12:07] LABS: Glucose,Whole Blood 101 mg/dL (75-99)
[2018-07-01] MEDS: cefTRIAXone IN SWFI 1,000 MG/10 ML SYRINGE IVP SCH (15:46)
[2018-07-01] MEDS ORDERED: FLUTICASONE 50MCG/SPRAY NASAL 16GM EA NOSTRIL PRN (17:22)
[2018-07-01] MEDS ORDERED: LORATADINE 10 MG TAB PO PRN (17:23)
--- NOTE | 2018-07-01 18:45 | P.PN ---
Subjective Progress Note Date: 07/01/18 This patient is a 47-year-old male who was admitted to hospital yesterday for symptoms of TIA and chronic headache. Patient was admitted with severe headache symptoms which responded yesterday to combination of [place] and Toradol injections. His headaches are much better today and he was sent for MRI MRA of the brain. MRA of the brain was completed and is normal with no evidence of cerebral aneurysm. MRI results of the brain are still pending today. Patient also underwent carotid Doppler ultrasound which came back negative with no evidence of carotid artery stenosis. He was scheduled to undergo lumbar puncture today however this was not completed. Apparently anesthesia is aware of this request and we will see if this can be completed to rule out any possibility of meningitis however this seems less likely. Patient otherwise seems to be doing fairly well. His headache symptoms have improved from initial presentation. Patient did undergo MRI of the brain and MRA of the brain results of which were reviewed today with the patient. Both studies came back normal with no evidence of any acute abnormalities. Patient states he does suffer from sinus and ALLERGIES which may be a contributing factor for his headache symptoms. He is still awaiting to have lumbar puncture procedure done tomorrow morning by anesthesia and we will await those results. If his spinal fluid results are negative for any evidence of COST RECORDER infection he may be considered for discharge home. Patient was seen by anesthesia this morning however his lumbar puncture was canceled as he had been given Lovenox this morning. Anesthesia will once again try to complete the procedure tomorrow and have instructed nursing staff to hold his Lovenox tomorrow morning. Neurologically the patient remains very much intact. Doubt that he has meningitis based on his clinical exam findings today. Once again due to his immunocompromised state we would recommend a complete the lumbar puncture for complete evaluation. His lumbar puncture procedure has been rescheduled for tomorrow morning. His spinal fluid comes back negative he may be considered for discharge home. His neurological examination today is nonfocal. We will continue close neurological follow-up the patient. His overall prognosis remains guarded. Objective - Vital Signs Vital signs: Vital Signs Temp 98.5 F 07/01/18 04:15 Pulse 69 07/01/18 12:00 Resp 18 07/01/18 12:00 BP 141/89 07/01/18 12:00 Pulse Ox 96 07/01/18 12:00 Intake & Output 06/30/18 07/01/18 07/01/18 18:59 06:59 18:59 Intake Total 480 740 430 Output Total 300 Balance 480 440 430 Weight 99.7 kg Intake: Intake, IV Titration 500 Amount Vancomycin 1,750 mg In 500 Sodium Chloride 0.9% 500 ml @ 167 mls/hr IVPB Q8H [facility] Rx#:[id number] Oral 480 240 430 Output: Urine 300 Other: Voiding Method Toilet # Voids 1 - Exam Physical examination: PHYSICAL EXAMINATION: Patient is resting comfortably in bed. VITAL SIGNS: Blood pressure is [141/89]. Heart rate is [69]. Respiration is [18] . Temperature is [98.5]. HEENT: Head is atraumatic, neck is supple, there were no carotid bruits. CHEST: Lungs are clear to auscultation and percussion. CARDIAC: S1, S2 normal rate and rhythm. There is no murmur. ABDOMEN: Soft and nontender. Bowel sounds are present. EXTREMITIES: There is no pedal edema. Peripheral pulses are present. Neurological examination: Patient has a nonfocal neurological examination today. Patient's headache symptoms are much improved today. - Labs CBC & Chem 7: 06/29/18 12:40 06/29/18 12:40 Labs: Abnormal Lab Results - Last 24 Hours (Table) 07/01/18 Range/Units 12:00 POC Glucose (mg/dL) 101 H (75-99) mg/dL Assessment and Plan (1) TIA (transient ischemic attack) Current Visit: Yes Status: Acute Code(s): G45.9 - TRANSIENT CEREBRAL ISCHEMIC ATTACK, UNSPECIFIED SNOMED Code(s): 462549319 (2) Chronic headache Current Visit: Yes Status: Acute Code(s): R51 - HEADACHE SNOMED Code(s): 886487408 (3) Rheumatoid arthritis Current Visit: Yes Status: Acute Code(s): M06.9 - RHEUMATOID ARTHRITIS, UNSPECIFIED SNOMED Code(s): 00662461 (4) Near syncope Current Visit: Yes Status: Acute Code(s): R55 - SYNCOPE AND COLLAPSE SNOMED Code(s): 634388778 Plan: This patient is a 47-year-old right-handed white male who was admitted to [facility] for evaluation of chronic headaches and left-sided numbness. Patient developed sudden left arm face and leg numbness that came on suddenly and lasted about 1 hour in duration and quickly resolved. He has been dealing with chronic headaches for over 2 months. He has a history of underlying rheumatoid arthritis and does follow with the supervisor lime. He has been taking Humira as primary treatment for his RA. The patient was evaluated in the emergency room by Dr. Xie. He underwent a computed tomography scan of the brain which was reported normal with no acute intracranial abnormality. On examination at bedside the patient is afebrile. He has no nuchal rigidity or neck stiffness on examination. We have recommended the patient to complete a lumbar puncture tomorrow morning to rule out any signs of infection given his immunocompromised state secondary to his rheumatoid arthritis and long-term use of Humira. The patient could not complete lumbar puncture this morning as he was continued on Lovenox. His Lovenox will be discontinued and a reattempt for lumbar puncture will be done tomorrow morning. We have recommended a complete stroke evaluation for this patient. Sclerae history suggests right hemispheric TIA. We will order MRI/ MRA of the brain for this patient. Patient was able to complete MRI/MRA of the brain today. Results are as noted above. Both studies did come back normal and we review the results today with the patient. He is scheduled to undergo lumbar puncture tomorrow to rule out any possibility of COST RECORDER infection. He seems to be less likely as he continues to show improvement with his overall condition and headaches. Given his immunocompromised state however we will proceed with LP tomorrow morning by anesthesia. If his LP is negative he may be considered for discharge home. Further evaluation will be given ending his test results. His overall prognosis at this time remains guarded. We will continue close neurological follow-up with this patient during this admission.
[2018-07-01] MEDS: LISINOPRIL 20 MG TAB PO SCH (19:36)
[2018-07-01] MEDS: ATORVASTATIN 40 MG TAB PO SCH (19:36)
[2018-07-02] MEDS: KETOROLAC 30 MG/ML 1 ML VIAL IVP SCH ×4 (04:51→23:11)
[2018-07-02] MEDS: ACETAMINOPHEN TAB 500 MG TAB PO PRN ×2 (06:17→15:48)
[2018-07-02] MEDS: PANTOPRAZOLE 40 MG TABLET PO SCH (06:18)
[2018-07-02] MEDS ORDERED: SODIUM CHLORIDE 0.9% 1,000 ML IV ONE ×2 (09:20)
[2018-07-02] MEDS ORDERED: fentaNYL (PF) 50 MCG/ML 2 ML AMP IVP ONE (09:45)
[2018-07-02] MEDS ORDERED: MIDAZOLAM 2 MG/2 ML VIAL IVP ONE (09:45)
--- NOTE | 2018-07-02 10:25 | P.PN ---
Subjective Progress Note Date: 07/02/18 Principal diagnosis: Headaches Patient was seen and examined. No acute events overnight. Patient underwent LP this morning. He denies headache. He denies fever or chills. Patient requesting home. Objective - Vital Signs Vital signs: Vital Signs Temp 97.9 F 07/02/18 08:00 Pulse 66 07/02/18 09:57 Resp 16 07/02/18 09:57 BP 134/75 07/02/18 09:57 Pulse Ox 96 07/02/18 09:57 Intake & Output 07/01/18 07/02/18 07/02/18 18:59 06:59 18:59 Intake Total 610 1000 440 Output Total 600 Balance 10 1000 440 Weight 100.8 kg Intake: IV 200 Intake, IV Titration 1000 Amount Vancomycin 1,750 mg In 1000 Sodium Chloride 0.9% 500 ml @ 167 mls/hr IVPB Q12H [facility] Rx#:[id number] Oral 610 240 Output: Urine 600 Other: Voiding Method Toilet Toilet # Voids 1 - Exam General: No acute distress, appears at stated age Derm: warm, dry Neck: Normal range of motion. no JVD. Head: atraumatic, normocephalic, symmetric Eyes: EOMI, no lid lag, anicteric sclera Mouth: no lip lesion, mucus membranes moist Cardiovascular: S1S2 reg, no murmur, positive posterior tibial pulse bilateral Lungs: CTA bilateral, no rhonchi, no rales , no accessory muscle use Abdominal: soft, nontender to palpation, no guarding, no appreciable organomegaly Ext: no gross muscle atrophy, no edema, no contractures Neuro: CN II-XI grossly intact, strength 5 out of 5 in all 4 extremities, sensation intact to touch in all 4 extremities Psych: Alert, oriented, appropriate affect - Labs CBC & Chem 7: 06/29/18 12:40 06/29/18 12:40 Labs: Abnormal Lab Results - Last 24 Hours (Table) 07/01/18 Range/Units 12:00 POC Glucose (mg/dL) 101 H (75-99) mg/dL Assessment and Plan Assessment: Assessment and plan 1. BUSTOS + L sided numbness - Likely to be Migraine but given history and PMH need to r/o CVA and Meningitis given immunocompromised state. - r/o CVA - CT brain negative - Echo shows EF 55-60% - Lipid panel shows LDL 49 T. Chol 120 TG 210 - MRA neck: Normal - MRI brain: Negative - r/o Meningitis - LP performed 07/02 - Pain control: Tylenol 500 mg PO Q6H, Toradol 30 mg IV Q6H PRN, [place] 10 PRN - Antibiotics: Ceftriaxone IV QD, Vancomycin IV - Patient is afebrile with no leukocytosis. Need to proceed with CVA workup. Continue IV Abx empirically. FU CSF analysis results, A1c, Neurology 2. HTN: BP 134/75. Continue Lisinopril 20 mg PO QD. Monitor vitals, adjust medications as necessary. 3. RA: On Humira at home. Hold. 4. DVT/GI Prophylaxis: Lovenox 40 SUBCUT QD. Protonix 40 mg PO QD. Stroke ruled out. Patient continues to show great improvement. LP was not done yesterday due to Lovenox injections given. Patient for LP this morning. Will follow up with preliminary results. Likely discharge if results negative.
[2018-07-02 10:33] LABS: Anion Gap 6 mmol/L; Blood Urea Nitrogen 12 mg/dL (9-20); Calcium 8.6 mg/dL (8.4-10.2); Carbon Dioxide 23 mmol/L (22-30); Chloride 111 mmol/L (98-107); Glucose 91 mg/dL (74-99); Potassium 4.2 mmol/L (3.5-5.1); Sodium 140 mmol/L (137-145)
--- NOTE | 2018-07-02 11:40 | P.PCN ---
Date of Procedure: 07/02/18 Procedure(s) Performed: Preoperative diagnosis: Meningitis Post operative diagnoses: Meningitis Anesthesia= moderate sedation with Versed 2 mg and fentanyl 100 g, and local infiltration with lidocaine 1% 2 mL. Condition: Guarded. Complication: none. Description of the procedure procedure risk and benefits discussed with the patient , consent signed. Patient and the procedure area placed in sitting position back prepped with chlorhexidine 3 times been local infiltration of the skin and subcutaneous tissue with lidocaine 1% 2 mL for skin and subcu interstitial frustrations at L4 5 levels then 22-gauge Quincke-type needle advanced slowly at L4- 5 interlaminar space there was positive cerebrospinal fluid which was clear, no heme, no paresthesia ,total of 9 ML of clear cerebrospinal fluid collected in 4 different tubes 2-2-1/2 mL in each, then the needle removed and a Band-Aid applied and patient tolerated the procedure well without any complications. Lovonex can be started ,at 9 Pm
[2018-07-02] MEDS: VANCOMYCIN 1,750 MG in SODIUM CHLORIDE 0.9% 500 ML IVPB SCH ×2 (12:45→23:13)
[2018-07-02 13:45] LABS: Glucose,CSF 37 mg/dL (40-70); Total Protein,CSF 122 mg/dL (12-60)
[2018-07-02 14:43] LABS: Appearance,CSF Clear; CSF Tube Number 4; CSF Tube Volume 1.5; Nucleated Cells, CSF 232 u/L (0-5); Red Blood Cell,CSF 1 u/L (0-10)
[2018-07-02 14:45] LABS: Diff, Total Cells Cnt, CSF 100; Mononuclear WBC,CSF 99 %; Polynuclear WBC,CSF 1 %
[2018-07-02] MEDS: cefTRIAXone IN SWFI 1,000 MG/10 ML SYRINGE IVP SCH (18:14)
--- NOTE | 2018-07-02 20:42 | P.GSCN ---
History of Present Illness Consult date: 07/02/18 Reason for Consult: Headache Requesting physician: Don Fowler History of present illness: This is a 47-year-old white male who in April was placed on hydrochlorothiazide. Shortly thereafter he started having a headache at the top of his head and he describes it as a dull aching-type pain. He took Tylenol and stopped the medication for the headache persists and it has continued up until just recently. He went to the emergency room where he was admitted. He describes his headache as a dull aching headache at the top of his head. He does admit to some sinonasal symptoms including sneezing, lacrimation, nasal drainage, nasal obstruction. He has seasonal variations of the sinus symptoms. There is a family history of ALLERGIES. He denies any other neurologic symptoms. He did have tunnel vision that has resolved. His headache is now a 3 on a 0-10. Review of Systems - Constitutional Reports chronic headaches, Reports chronic pain, Denies daytime sleepiness - EENT Eyes: bilateral as per HPI Ears, nose, mouth and throat: Denies ant. neck pain, Denies dysphagia - Cardiovascular Denies claudication - Respiratory Denies cough with sputum - Gastrointestinal Denies bloating - Genitourinary Denies flank pain - Musculoskeletal Denies atrophy - Integumentary Denies brittle nails - Neurological Denies burning pain, Denies change in smell/taste, Denies change in speech - Psychiatric Denies anxiety attacks - Endocrine Denies deepening of the voice - Hematologic/Lymphatic Denies easy bleeding - Allergic/Immunologic Reports allergic rhinitis, Reports seasonal allergies Past Medical History Past Medical History: Hypertension Additional Past Medical History / Comment(s): arthritis, chronic ubaldo wrist pain from trauma History of Any Multi-Drug Resistant Organisms: None Reported Additional Past Surgical History / Comment(s): wrist surgery, hernia when pt was an infant Past Anesthesia/Blood Transfusion Reactions: No Reported Reaction Past Psychological History: Anxiety Additional Psychological History / Comment(s): re procedure Smoking Status: Former smoker Past Alcohol Use History: Occasional Past Drug Use History: None Reported - Past Family History Father Family Medical History: No Reported History Medications and Allergies Home Medications Medication Instructions Recorded Confirmed Type Lisinopril [Zestril] 20 mg PO HS 04/19/14 06/29/18 History traMADol HCl [Ultram] 50 mg PO TID PRN 04/19/14 06/29/18 History Acetaminophen Tab [Tylenol] 500 - 1,000 mg PO Q6H PRN 06/29/18 06/29/18 History Adalimumab [Humira Pen] 40 mg SQ MO 06/29/18 06/29/18 History Atorvastatin [Lipitor] 40 mg PO HS 06/29/18 06/29/18 History Hydrocodone/Acetaminophen [Horace 1 tab PO BID PRN 06/29/18 06/29/18 History 10-325] Ibuprofen [Motrin] 800 mg PO TID PRN 06/29/18 06/29/18 History Allergies Allergy/AdvReac Type Severity Reaction Status Date / Time Sulfa (Sulfonamide Allergy Unknown Verified 06/29/18 13:06 Antibiotics) Surgical - Exam Osteopathic Statement: *. No significant issues noted on an osteopathic structural exam other than those noted in the History and Physical/Consult. Vital Signs Temp Pulse Resp BP Pulse Ox 99.1 F 100 16 145/80 99 06/29/18 12:23 06/29/18 12:23 06/29/18 12:23 06/29/18 12:23 06/29/18 12:23 - General well developed, well nourished, no distress - Eyes PERRL, normal ocular movement - ENT Head is normocephalic the face is symmetric. There is no tenderness to the sinuses are mastoids. There is no nodules or eruptions or parasites on scalp. Auricles are well-formed canals are clear. Tympanic members are without bulging or retraction. Nose shows some inferior turbinate hypertrophy. Mouth and throat reveal some postnasal drainage no oral lesions are noted. Neck demonstrates no tumors or masses. Thyroid is unremarkable. normal pinna, no hearing loss, no no congestion, nasal discharge, mucosal exudate - Neck no masses, no bruits, no lymphadectomy, no venous distension - Respiratory normal expansion - Neurologic normal coordination, normal sensation - Musculoskeletal normal gait, normal posture - Psychiatric oriented to time, oriented to person, oriented to place, speech is normal, memory intact Results - Labs 06/29/18 12:40 07/02/18 10:12 Abnormal Lab Results - Last 24 Hours (Table) 07/02/18 07/02/18 Range/Units 09:52 10:12 Chloride 111 H (98-107) mmol/L CSF Tot Nucleated Cells 232 H (0-5) u/L CSF Glucose 37 L (40-70) mg/dL CSF Total Protein 122 H (12-60) mg/dL Microbiology - Last 24 Hours (Table) 07/02/18 09:52 CSF Gram Stain - Preliminary Cerebral Spinal Fluid Diabetes panel 07/02/18 Range/Units 10:12 Sodium 140 (137-145) mmol/L Potassium 4.2 (3.5-5.1) mmol/L Chloride 111 H (98-107) mmol/L Carbon Dioxide 23 (22-30) mmol/L BUN 12 (9-20) mg/dL Creatinine 0.94 (0.66-1.25) mg/dL Glucose 91 (74-99) mg/dL Calcium 8.6 (8.4-10.2) mg/dL Calcium panel 07/02/18 Range/Units 10:12 Calcium 8.6 (8.4-10.2) mg/dL Pituitary panel 07/02/18 Range/Units 10:12 Sodium 140 (137-145) mmol/L Potassium 4.2 (3.5-5.1) mmol/L Chloride 111 H (98-107) mmol/L Carbon Dioxide 23 (22-30) mmol/L BUN 12 (9-20) mg/dL Creatinine 0.94 (0.66-1.25) mg/dL Glucose 91 (74-99) mg/dL Calcium 8.6 (8.4-10.2) mg/dL Adrenal panel 07/02/18 Range/Units 10:12 Sodium 140 (137-145) mmol/L Potassium 4.2 (3.5-5.1) mmol/L Chloride 111 H (98-107) mmol/L Carbon Dioxide 23 (22-30) mmol/L BUN 12 (9-20) mg/dL Creatinine 0.94 (0.66-1.25) mg/dL Glucose 91 (74-99) mg/dL Calcium 8.6 (8.4-10.2) mg/dL Assessment and Plan (1) Migraine Current Visit: Yes Status: Acute Code(s): G43.909 - MIGRAINE, UNSP, NOT INTRACTABLE, WITHOUT STATUS MIGRAINOSUS SNOMED Code(s): 17628503 (2) Allergic rhinitis Current Visit: Yes Status: Acute Code(s): J30.9 - ALLERGIC RHINITIS, UNSPECIFIED SNOMED Code(s): 30177757 Plan: I have recommended a computed tomography scan of the paranasal sinuses were all the patient's here in the hospital. His headaches are not related to a chronic sinus infection. They could be related to his ALLERGIES are clearly migrainous in etiology. I'm recommending continued neurologic care with Dr. Pathak. I would like to have this patient follow up in the office and ALLERGY testing is recommended in an effort to identify a potential ALLERGIC etiology for his migraines. I've given him my card and he is to follow up with me on an outpatient basis. Time with Patient: Greater than 30
[2018-07-02] MEDS ORDERED: MONTELUKAST 10 MG TAB PO STA (20:47)
[2018-07-02] MEDS: LISINOPRIL 20 MG TAB PO SCH (21:25)
[2018-07-02] MEDS: ATORVASTATIN 40 MG TAB PO SCH (21:25)
--- NOTE | 2018-07-02 21:30 | CT ---
EXAMINATION TYPE: CT sinus wo con DATE OF EXAM: 07/02/2018 COMPARISON: None HISTORY: Sinus pain and pressure. CT DLP: 618.1 mGycm. Automated Exposure Control for Dose Reduction was Utilized. TECHNIQUE: CT scan of the sinuses is performed without contrast, axial images are obtained, coronal r eformatted images are also reviewed. FINDINGS: There is bilateral patency of the ostomy of complex. There are mucus retention cysts in bot h maxillary sinuses. The orbital margins are intact. There is no evidence of a blowout fracture. Maxi lla is intact. Sella turcica appears normal. I see no bony destructive process. IMPRESSION: Mucous retention cysts in the maxillary sinuses.
--- NOTE | 2018-07-02 23:35 | P.PN ---
Subjective Progress Note Date: 07/02/18 This patient is a 47-year-old male who was admitted to hospital yesterday for symptoms of TIA and chronic headache. Patient was admitted with severe headache symptoms which responded yesterday to combination of [place] and Toradol injections. His headaches are much better today and he was sent for MRI MRA of the brain. MRA of the brain was completed and is normal with no evidence of cerebral aneurysm. MRI results of the brain are still pending today. Patient also underwent carotid Doppler ultrasound which came back negative with no evidence of carotid artery stenosis. He was scheduled to undergo lumbar puncture today however this was not completed. Apparently anesthesia is aware of this request and we will see if this can be completed to rule out any possibility of meningitis however this seems less likely. Patient otherwise seems to be doing fairly well. His headache symptoms have improved from initial presentation. Patient did undergo MRI of the brain and MRA of the brain results of which were reviewed today with the patient. Both studies came back normal with no evidence of any acute abnormalities. Patient states he does suffer from sinus and ALLERGIES which may be a contributing factor for his headache symptoms. He is still awaiting to have lumbar puncture procedure done tomorrow morning by anesthesia and we will await those results. If his spinal fluid results are negative for any evidence of HOSPITALITY ASSOCIATE infection he may be considered for discharge home. Patient was seen by anesthesia this morning however his lumbar puncture was canceled as he had been given Lovenox this morning. Anesthesia will once again try to complete the procedure tomorrow and have instructed nursing staff to hold his Lovenox tomorrow morning. Neurologically the patient remains very much intact. Doubt that he has meningitis based on his clinical exam findings today. Once again due to his immunocompromised state we would recommend a complete the lumbar puncture for complete evaluation. His lumbar puncture procedure has been rescheduled for this morning. His lumbar puncture was completed today. Results of the spinal fluid analysis revealed RBC count of 1 wbc count of 232. 99% were mononuclear white cells. One percent polynuclear white cells. CSF protein was 122 and CSF glucose 37. We have reviewed the spinal fluid results in detail today with the patient. These findings are highly suggesting aseptic meningitis or a viral meningitis as a cause for the spinal fluid findings. His headaches have been better today and he rates them is 2/10 in intensity. Initially on admission he was 10 over 10. Fortunately the spinal tap was able to be completed today. This was our concern for this patient given the fact that he is on immunosuppressant medications. We recommend that he remain off of Humira until he is reevaluated by his music pastor Dr. Colby when he may be considered for restarting. His neurological examination today is nonfocal. We will continue close neurological follow-up the patient. We reviewed all of his test results in detail today with the patient including his lumbar puncture results. We would recommend symptomatic treatment of his headache pain. We are also recommending an infectious disease consultation with Dr. Hogan. We will await any further recommendations per other specialists seen this patient. He was seen by ENT today and has findings suggesting ALLERGIC rhinitis. This is not a cause of his headaches. We will continue close neurological follow-up for this patient. His overall prognosis remains guarded. Objective - Vital Signs Vital signs: Vital Signs Temp 98 F 07/02/18 16:00 Pulse 80 07/02/18 16:00 Resp 18 07/02/18 16:00 BP 130/68 07/02/18 16:00 Pulse Ox 95 07/02/18 16:00 Intake & Output 07/02/18 07/02/18 07/03/18 06:59 18:59 06:59 Intake Total 1000 440 Output Total 400 Balance 1000 40 Weight 100.8 kg Intake: IV 200 Intake, IV Titration 1000 Amount Vancomycin 1,750 mg In 1000 Sodium Chloride 0.9% 500 ml @ 167 mls/hr IVPB Q12H [facility] Rx#:[id number] Oral 240 Output: Urine 400 Other: Voiding Method Toilet Toilet Urinal # Voids 1 1 - Exam Physical examination: PHYSICAL EXAMINATION: Patient is resting comfortably in bed. VITAL SIGNS: Blood pressure is [135/70]. Heart rate is [75]. Respiration is [17] . Temperature is [98.5]. HEENT: Head is atraumatic, neck is supple, there were no carotid bruits. CHEST: Lungs are clear to auscultation and percussion. CARDIAC: S1, S2 normal rate and rhythm. There is no murmur. ABDOMEN: Soft and nontender. Bowel sounds are present. EXTREMITIES: There is no pedal edema. Peripheral pulses are present. Neurological examination: Patient has a nonfocal neurological examination today. Patient's headache symptoms are much improved today. - Labs CBC & Chem 7: 06/29/18 12:40 07/02/18 10:12 Labs: Abnormal Lab Results - Last 24 Hours (Table) 07/02/18 07/02/18 Range/Units 09:52 10:12 Chloride 111 H (98-107) mmol/L CSF Tot Nucleated Cells 232 H (0-5) u/L CSF Glucose 37 L (40-70) mg/dL CSF Total Protein 122 H (12-60) mg/dL Microbiology - Last 24 Hours (Table) 07/02/18 09:52 CSF Gram Stain - Preliminary Cerebral Spinal Fluid Assessment and Plan (1) TIA (transient ischemic attack) Current Visit: Yes Status: Acute Code(s): G45.9 - TRANSIENT CEREBRAL ISCHEMIC ATTACK, UNSPECIFIED SNOMED Code(s): 828829646 (2) Chronic headache Current Visit: Yes Status: Acute Code(s): R51 - HEADACHE SNOMED Code(s): 358848024 (3) Rheumatoid arthritis Current Visit: Yes Status: Acute Code(s): M06.9 - RHEUMATOID ARTHRITIS, UNSPECIFIED SNOMED Code(s): 45581435 (4) Near syncope Current Visit: Yes Status: Acute Code(s): R55 - SYNCOPE AND COLLAPSE SNOMED Code(s): 926245926 Plan: This patient is a 47-year-old right-handed white male who was admitted to [facility] for evaluation of chronic headaches and left-sided numbness. Patient developed sudden left arm face and leg numbness that came on suddenly and lasted about 1 hour in duration and quickly resolved. He has been dealing with chronic headaches for over 2 months. He has a history of underlying rheumatoid arthritis and does follow with the music pastor. He has been taking Humira as primary treatment for his RA. The patient was evaluated in the emergency room by Dr. Xie. He underwent a computed tomography scan of the brain which was reported normal with no acute intracranial abnormality. On examination at bedside the patient is afebrile. He has no nuchal rigidity or neck stiffness on examination. We have recommended the patient to complete a lumbar puncture tomorrow morning to rule out any signs of infection given his immunocompromised state secondary to his rheumatoid arthritis and long-term use of Humira. The patient could not complete lumbar puncture this morning as he was continued on Lovenox. His Lovenox will be discontinued and a reattempt for lumbar puncture will be done tomorrow morning. We have recommended a complete stroke evaluation for this patient. His history suggests right hemispheric TIA. We will order MRI/MRA of the brain for this patient. Patient was able to complete MRI/MRA of the brain today. Results are as noted above. Both studies did come back normal and we review the results today with the patient. He is scheduled to undergo lumbar puncture today to rule out any possibility of [facility]OSPITALITY ASSOCIATE infection. He was able to have lumbar puncture completed today results of which are noted above. CSF findings are highly suggesting aseptic or viral meningitis. We have consulted infectious disease for any further recommendations. We will continue symptomatic treatment of his headache pain. He was seen by ENT and has ALLERGIC rhinitis which is not a cause of his headaches. Hopefully this is a symptomatic headache which should resolve as the aseptic meningitis improves with time. Given the fact that the patient is immunocompromised and is currently taking Humira we would recommend to continue to hold his Humira until he is reevaluated by his music pastor Dr. Colby. We have discussed the results of the lumbar puncture in detail today with the patient. He is aware of the finding of aseptic meningitis. We will await further recommendations from Dr. Hogan from infectious disease to evaluate these LP results. His prognosis at this time remains guarded. We will continue close neurological follow-up with this patient during this admission.
[2018-07-03] MEDS: KETOROLAC 30 MG/ML 1 ML VIAL IVP SCH ×2 (06:11→14:29)
[2018-07-03] MEDS: PANTOPRAZOLE 40 MG TABLET PO SCH (06:12)
[2018-07-03 06:26] LABS: Basophils % (A) 1 %; Eosinophils # (A) 0.2 k/uL (0-0.7); Eosinophils % (A) 7 %; HCT 36.7 % (39.0-53.0); HGB 12.6 gm/dL (13.0-17.5); Lymphocytes # (A) 1.1 k/uL (1.0-4.8); Lymphocytes % (A) 32 %; MCH 30.3 pg (25.0-35.0); MCHC 34.2 g/dL (31.0-37.0); MCV 88.7 fL (80.0-100.0); Mean Platelet Volume 7.6; Monocytes # (A) 0.3 k/uL (0-1.0); Monocytes % (A) 8 %; Neutrophils # (A) 1.6 k/uL (1.3-7.7); Neutrophils % (A) 50 %; Platelet Count 109 k/uL (150-450); RBC 4.14 m/uL (4.30-5.90); RDW 14.3 % (11.5-15.5); WBC 3.3 k/uL (3.8-10.6)
[2018-07-03 06:34] LABS: Anion Gap 5 mmol/L; Blood Urea Nitrogen 10 mg/dL (9-20); Calcium 8.9 mg/dL (8.4-10.2); Carbon Dioxide 26 mmol/L (22-30); Chloride 110 mmol/L (98-107); Glucose 93 mg/dL (74-99); Potassium 4.3 mmol/L (3.5-5.1); Sodium 141 mmol/L (137-145)
[2018-07-03] MEDS: ENOXAPARIN 40 MG/0.4 ML SYRINGE SQ SCH ×2 (08:15→09:10)
--- NOTE | 2018-07-03 11:02 | P.PN ---
Subjective Progress Note Date: 07/03/18 Principal diagnosis: Headache possible viral meningitis. Patient was seen and examined. No acute events overnight. Patient states his headache is completely resolved. Wanting to go home. No fever or chills. Objective - Vital Signs Vital signs: Vital Signs Temp 98.0 F 07/03/18 04:00 Pulse 65 07/03/18 04:00 Resp 17 07/03/18 04:00 BP 148/83 07/03/18 04:00 Pulse Ox 96 07/03/18 04:00 Intake & Output 07/02/18 07/03/18 07/03/18 18:59 06:59 18:59 Intake Total 440 1000 Output Total 400 Balance 40 1000 Weight 101 kg Intake: IV 200 Intake, IV Titration 600 Amount Sodium Chloride 0.9% 1, 100 000 ml @ 0 mls/hr IV [facility] Rx#:[id number] Vancomycin 1,750 mg In 500 Sodium Chloride 0.9% 500 ml @ 167 mls/hr IVPB Q12H [facility] Rx#:[id number] Oral 240 400 Output: Urine 400 Other: Voiding Method Toilet Toilet Urinal Urinal # Voids 1 2 - Exam General: No acute distress, appears at stated age Derm: warm, dry Neck: Normal range of motion. no JVD. Head: atraumatic, normocephalic, symmetric Eyes: EOMI, no lid lag, anicteric sclera Mouth: no lip lesion, mucus membranes moist Cardiovascular: S1S2 reg, no murmur, positive posterior tibial pulse bilateral Lungs: CTA bilateral, no rhonchi, no rales , no accessory muscle use Abdominal: soft, nontender to palpation, no guarding, no appreciable organomegaly Ext: no gross muscle atrophy, no edema, no contractures Neuro: CN II-XI grossly intact, strength 5 out of 5 in all 4 extremities, sensation intact to touch in all 4 extremities Psych: Alert, oriented, appropriate affect - Labs CBC & Chem 7: 07/03/18 05:58 07/03/18 05:58 Labs: Abnormal Lab Results - Last 24 Hours (Table) 07/02/18 07/02/18 07/03/18 Range/Units 09:52 10:12 05:58 WBC (3.8-10.6) k/uL RBC (4.30-5.90) m/uL Hgb (13.0-17.5) gm/dL Hct (39.0-53.0) % Plt Count (150-450) k/uL Chloride 111 H 110 H (98-107) mmol/L CSF Tot Nucleated Cells 232 H (0-5) u/L CSF Glucose 37 L (40-70) mg/dL CSF Total Protein 122 H (12-60) mg/dL 07/03/18 Range/Units 05:58 WBC 3.3 L (3.8-10.6) k/uL RBC 4.14 L (4.30-5.90) m/uL Hgb 12.6 L (13.0-17.5) gm/dL Hct 36.7 L (39.0-53.0) % Plt Count 109 L (150-450) k/uL Chloride (98-107) mmol/L CSF Tot Nucleated Cells (0-5) u/L CSF Glucose (40-70) mg/dL CSF Total Protein (12-60) mg/dL Microbiology - Last 24 Hours (Table) 07/02/18 09:52 CSF Gram Stain - Preliminary Cerebral Spinal Fluid Assessment and Plan Assessment: Assessment and plan 1. BUSTOS + L sided numbness - Likely to be Migraine but given history and PMH need to r/o CVA and Meningitis given immunocompromised state. - r/o CVA - CT brain negative - Echo shows EF 55-60% - Lipid panel shows LDL 49 T. Chol 120 TG 210 - MRA neck: Normal - MRI brain: Negative - r/o Meningitis - LP performed 07/02 - CSF analysis shows 232 total nucleated cells, 99% lymphocytic, low glucose of 37, elevated total protein of 122. - Patient evaluated by ENT for possible sinusitis cause of headache. CT of the sinus shows mucous retention cysts in the maxillary sinus. Advised to FU outPT, not the cause of BUSTOS. - Pain control: Tylenol 500 mg PO Q6H, Toradol 30 mg IV Q6H PRN, [place] 10 PRN - Antibiotics: Ceftriaxone IV QD, Vancomycin IV - Patient is afebrile with no leukocytosis. Need to proceed with CVA workup. Continue IV Abx empirically. FU CSF Cx, Procalcitonin, VDRL, Borrelia, HSV, [place], Quantiferon TB Gold, Neurology and ID consult 2. HTN: BP 148/83. Continue Lisinopril 20 mg PO QD. Monitor vitals, adjust medications as necessary. 3. RA: On Humira at home. Hold. 4. DVT/GI Prophylaxis: Lovenox 40 SUBCUT QD. Protonix 40 mg PO QD. Stroke ruled out. Patient continues to show great improvement. LP showing possible viral meningitis. Will consult ID for further recommendations. Will add QuantiFERON and ask micro if possible to add acid-fast CSF analysis.
[2018-07-03] MEDS: VANCOMYCIN 1,750 MG in SODIUM CHLORIDE 0.9% 500 ML IVPB SCH (12:37)
[2018-07-03] MEDS: ACETAMINOPHEN TAB 500 MG TAB PO PRN (12:37)
--- NOTE | 2018-07-03 16:52 | P.CONS ---
History of Present Illness - Reason for Consult Consult date: 07/03/18 - Chief Complaint Headache - History of Present Illness Pleasant 47-year-old male who is medically disabled due to his rheumatoid arthritis, he is on Humira for the treatment of his arthritis with good results. He also had debility and trauma to his right hand in a work-related accident years ago. He at home was having difficulties not feeling well for actually several months, however now has developed a worsening of his life associated with some numbness to his left side of his jaw left chest arm and foot because he presented to the emergency center for further evaluation. Patient was concerned potential stroke because of his symptoms. Upon arrival the patient had no significant fever and workup was performed which included imaging of his brain failed to reveal evidence of any acute change. Patient over continue to have significant headache and was seen by neurology. Because of the ongoing headache lumbar puncture was requested which occurred yesterday morning. Late last evening infectious diseases consultation was requested regarding some of the abnormalities that were seen on his lumbar puncture CSF fluid. The patient had evidence of a nucleated cell count of 232 with 99% mononuclear cells, glucose was mildly low at 37 and total protein was elevated 122. With this there was concerns to meningitis. Significant a consult it was evident the patient was not having high-grade fevers or chills he didn't have leukocytosis and was feeling better and consequently highly likely this is a bacterial meningitis with CSF picture. Request for viral workup performed patient is now evaluated. Feels better today concerning a one-to-one able to go home because his headache is doing so much better. Review of Systems As stated patient reports headache of his life this is now improved HEENT headache improved visual changes resolved Denies sinus or mouth discomforts. Denies neck stiffness or pain. Denies significant oral cavity pain. Denies difficulty on swallowing. Lungs: Denies significant shortness of breath, cough, sputum production, or hemoptysis. Cardiovascular: Denies significant shortness of breath, chest pain, chest wall pain, orthopnea, dyspnea on exertion, syncope Gastrointestinal:Denies nausea, vomiting, diarrhea, constipation, hematemesis, melena, hematochezia. No no significant change of bowel habit noticed. Musculoskeletal: denies significant myalgias or arthralgias. No new joint swelling. Denies new back pain. Skin: Denies new rash or lesions. No new ulcers or wounds are related.. Neuro: Denies headache or visual change. Denies any new onset weakness or difficulty with ambulation. Denies falls or seizures. Psychiatric:Denies anxiety or depression. Endocrine: He's had some fatigue related to the recent illness, denies significant weight loss or weight gain. Past Medical History Past Medical History: Hypertension Additional Past Medical History / Comment(s): arthritis, chronic ubaldo wrist pain from trauma History of Any Multi-Drug Resistant Organisms: None Reported Additional Past Surgical History / Comment(s): wrist surgery, hernia when pt was an infant Past Anesthesia/Blood Transfusion Reactions: No Reported Reaction Past Psychological History: Anxiety Additional Psychological History / Comment(s): re procedure. with family home with his . 1 pet Dog in the home. Reformed smoker. No experience no extensive travel. No recreational drug use Smoking Status: Former smoker Past Alcohol Use History: Occasional Past Drug Use History: None Reported - Past Family History Father Family Medical History: No Reported History Medications and Allergies Home Medications and Allergies Comment(s): Current Medications Acetaminophen (Tylenol Tab) 500 mg PO Q6H PRN PRN Reason: Migraine Headache Last Admin: 07/03/18 12:37 Dose: 500 mg Hydrocodone Bitart/Acetaminophen ([place] 10) 1 each PO BID PRN PRN Reason: MODERATE Pain Last Admin: 06/30/18 09:00 Dose: 1 each Atorvastatin Calcium (Lipitor) 40 mg PO HS [facility] Last Admin: 07/02/18 21:25 Dose: 40 mg Ceftriaxone Sodium (Rocephin) 1,000 mg IVP Q24H [facility] Last Admin: 07/02/18 18:14 Dose: 1,000 mg Enoxaparin Sodium (Lovenox) 40 mg SQ DAILY [facility] Last Admin: 07/03/18 09:10 Dose: Not Given Fluticasone Propionate (Flonase Nasal [place]) 2 spray EA NOSTRIL DAILY PRN PRN Reason: Allergy Symptoms Vancomycin HCl 1,750 mg/ (Sodium Chloride) 500 mls @ 167 mls/hr IVPB Q12H [facility] Last Admin: 07/03/18 12:37 Dose: 167 mls/hr Ketorolac Tromethamine (Toradol) 30 mg IVP Q6HR [facility] Stop: 07/03/18 17:10 Last Admin: 07/03/18 14:29 Dose: Not Given Lisinopril (Zestril) 20 mg PO [facility] Last Admin: 07/02/18 21:25 Dose: 20 mg Loratadine (Claritin) 10 mg PO DAILY PRN PRN Reason: Sinus Symptoms Last Admin: 07/01/18 18:06 Dose: 10 mg Miscellaneous Information (Vancomycin Trough Due) 0 each MISCELLANE DIRECTED ONE Stop: 07/04/18 11:01 Pantoprazole Sodium (Protonix) 40 mg PO -BRKFST [facility] Last Admin: 07/03/18 06:12 Dose: 40 mg Home Medications Medication Instructions Recorded Confirmed Type Lisinopril [Zestril] 20 mg PO 04/19/14 06/29/18 History traMADol HCl [Ultram] 50 mg PO TID PRN 04/19/14 06/29/18 History Acetaminophen Tab [Tylenol] 500 - 1,000 mg PO Q6H PRN 06/29/18 06/29/18 History Adalimumab [Humira Pen] 40 mg SQ MO 06/29/18 06/29/18 History Atorvastatin [Lipitor] 40 mg PO HS 06/29/18 06/29/18 History Hydrocodone/Acetaminophen [[place] 1 tab PO BID PRN 06/29/18 06/29/18 History 10-325] Ibuprofen [Motrin] 800 mg PO TID PRN 06/29/18 06/29/18 History Allergies Allergy/AdvReac Type Severity Reaction Status Date / Time Sulfa (Sulfonamide Allergy Unknown Verified 06/29/18 13:06 Antibiotics) Physical Exam Vitals: Vital Signs Temp Pulse Pulse Resp BP Pulse Ox 07/03/18 16:00 98.5 F 60 18 140/90 95 07/03/18 15:53 85 18 07/03/18 12:00 97.8 F 85 68 18 140/88 96 07/03/18 08:00 98.5 F 85 63 18 128/74 95 07/03/18 04:00 98.0 F 80 65 17 148/83 96 07/02/18 23:47 80 18 07/02/18 23:41 98.6 F 59 L 18 134/80 94 L 07/02/18 20:00 98.5 F 80 75 17 135/70 97 Intake and Output 07/03/18 07/03/18 07/03/18 06:59 14:59 22:59 Intake Total 800 476 Balance 800 476 Intake: Intake, IV Titration 600 Amount Sodium Chloride 0.9% 1, 100 000 ml @ 0 mls/hr IV .[facility] Rx#:[id number] Vancomycin 1,750 mg In 500 Sodium Chloride 0.9% 500 ml @ 167 mls/hr IVPB Q12H [facility] Rx#:[id number] Oral 200 476 Other: Voiding Method Toilet Toilet Toilet Urinal Urinal Urinal # Voids 2 1 Weight 101 kg Pleasant 47-year-old male who is an appropriate build is in no distress at this point in time, relates he feels considerably better than admission HEENT: Anicteric conjunctiva are pink and moist nasal mucosa grossly intact without significant lesions, there is no thrush. No photophobia is elucidated Neck: The neck is supple without significant lymphadenopathy or thyromegaly. Lungs: Good bilateral air entry without significant crackles or wheezing. There is no significant bronchial sounds. There is no egophony or dullness. Heart: Regular rate and rhythm with an audible S1-S2, no S3 no S4. There is no significant murmur click or rub, PMI was nondisplaced. Abdomen: Positive bowel sounds soft and nontender without palpable masses or organomegaly. There was no guarding or rebound. Extremities: The upper extremities have excellent pulses they are symmetric, no significant petechiae or telangiectasia. No splinter hemorrhages were noted. The lower extremities are free from significant edema. The peripheral pulses were 2+ and symmetric. Neuro: Awake alert oriented to person place and time. There are no acute new gross focal sensory motor deficits. Deep tendon reflexes are +2+ and symmetric , patient has intact sensation over all the limbs. Results CBC & Chem 7: 07/03/18 05:58 07/03/18 05:58 Labs: Abnormal Lab Results - Last 24 Hours (Table) 07/03/18 07/03/18 Range/Units 05:58 05:58 WBC 3.3 L (3.8-10.6) k/uL RBC 4.14 L (4.30-5.90) m/uL Hgb 12.6 L (13.0-17.5) gm/dL Hct 36.7 L (39.0-53.0) % Plt Count 109 L (150-450) k/uL Chloride 110 H (98-107) mmol/L Microbiology - Last 24 Hours (Table) 07/02/18 09:52 CSF Gram Stain - Preliminary Cerebral Spinal Fluid CSF Culture - Preliminary Laboratory Results WBC 3.3 k/uL (3.8-10.6) L 07/03/18 05:58 RBC 4.14 m/uL (4.30-5.90) L 07/03/18 05:58 Hgb 12.6 gm/dL (13.0-17.5) L 07/03/18 05:58 Hct 36.7 % (39.0-53.0) L 07/03/18 05:58 MCV 88.7 fL (80.0-100.0) 07/03/18 05:58 MCH 30.3 pg (25.0-35.0) 07/03/18 05:58 MCHC 34.2 g/dL (31.0-37.0) 07/03/18 05:58 RDW 14.3 % (11.5-15.5) 07/03/18 05:58 Plt Count 109 k/uL (150-450) L 07/03/18 05:58 Neutrophils % 50 % 07/03/18 05:58 Lymphocytes % 32 % 07/03/18 05:58 Monocytes % 8 % 07/03/18 05:58 Eosinophils % 7 % 07/03/18 05:58 Basophils % 1 % 07/03/18 05:58 Neutrophils # 1.6 k/uL (1.3-7.7) 07/03/18 05:58 Lymphocytes # 1.1 k/uL (1.0-4.8) 07/03/18 05:58 Monocytes # 0.3 k/uL (0-1.0) 07/03/18 05:58 Eosinophils # 0.2 k/uL (0-0.7) 07/03/18 05:58 Basophils # 0.0 k/uL (0-0.2) 07/03/18 05:58 Poikilocytosis Slight 06/29/18 12:40 PT 10.0 sec (9.0-12.0) 06/29/18 12:40 INR 1.0 (<1.2) 06/29/18 12:40 APTT 27.1 sec (22.0-30.0) 06/29/18 12:40 Sodium 141 mmol/L (137-145) 07/03/18 05:58 Potassium 4.3 mmol/L (3.5-5.1) 07/03/18 05:58 Chloride 110 mmol/L (98-107) H 07/03/18 05:58 Carbon Dioxide 26 mmol/L (22-30) 07/03/18 05:58 Anion Gap 5 mmol/L 07/03/18 05:58 BUN 10 mg/dL (9-20) 07/03/18 05:58 Creatinine 1.00 mg/dL (0.66-1.25) 07/03/18 05:58 Est GFR (CKD-EPI)AfAm >90 (>60 ml/min/1.73 sqM) 07/03/18 05:58 Est GFR (CKD-EPI)NonAf >90 (>60 ml/min/1.73 sqM) 07/03/18 05:58 Glucose 93 mg/dL (74-99) 07/03/18 05:58 POC Glucose (mg/dL) 101 mg/dL (75-99) H 07/01/18 12:00 POC Glu Finished Yarn Examiner ID Marifer Matthews 07/01/18 12:00 Calcium 8.9 mg/dL (8.4-10.2) 07/03/18 05:58 Total Bilirubin 0.9 mg/dL (0.2-1.3) 06/29/18 12:40 AST 33 U/L (17-59) 06/29/18 12:40 ALT 47 U/L (21-72) 06/29/18 12:40 Alkaline Phosphatase 75 U/L (38-126) 06/29/18 12:40 Total Creatine Kinase 43 U/L (55-170) L 06/29/18 12:40 CK-MB (CK-2) 0.6 ng/mL (0.0-2.4) 06/29/18 12:40 CK-MB (CK-2) Rel Index 1.4 06/29/18 12:40 Troponin I <0.012 ng/mL (0.000-0.034) 06/29/18 12:40 Total Protein 7.4 g/dL (6.3-8.2) 06/29/18 12:40 Albumin 4.7 g/dL (3.5-5.0) 06/29/18 12:40 Triglycerides 210 mg/dL (<150) H 06/29/18 12:40 Cholesterol 120 mg/dL (<200) 06/29/18 12:40 LDL Cholesterol, Calc 49 mg/dL (0-99) 06/29/18 12:40 HDL Cholesterol 29 mg/dL (40-60) L 06/29/18 12:40 Procalcitonin 0.07 ng/mL (0.02-0.09) 07/02/18 10:12 CSF Tube Number 4 07/02/18 09:52 CSF Volume 1.5 07/02/18 09:52 CSF Appearance Clear 07/02/18 09:52 CSF Color Colorless 07/02/18 09:52 CSF RBC 1 u/L (0-10) 07/02/18 09:52 CSF Tot Nucleated Cells 232 u/L (0-5) H 07/02/18 09:52 CSF Mononuclear WBCs % 99 % 07/02/18 09:52 CSF Polynuclear WBCs % 1 % 07/02/18 09:52 CSF Glucose 37 mg/dL (40-70) L 07/02/18 09:52 CSF Total Protein 122 mg/dL (12-60) H 07/02/18 09:52 Vancomycin Trough 26.7 ug/mL 07/01/18 11:10 Microbiology 07/02/18 09:52 Cerebral Spinal Fluid CSF Gram Stain - Preliminary 07/02/18 09:52 Cerebral Spinal Fluid CSF Culture - Preliminary Assessment and Plan (1) Migraine Current Visit: Yes Status: Acute Code(s): G43.909 - MIGRAINE, UNSP, NOT INTRACTABLE, WITHOUT STATUS MIGRAINOSUS SNOMED Code(s): 59897516 (2) Aseptic meningitis Narrative/Plan: Pleasant 47-year-old male presents to Hospital worsening of his life and evidence of numbness and tingling to the left side of his face down into his left arm and left foot. He constantly was admitted and is here workup by neurology for migraine TIA. Because of his symptoms. Lumbar puncture was requested and performed, there was evidence of the CSF wbc of 232, 99% mononuclears, glucose of 37 which is mildly low and total protein elevated at 122. This picture is consistent with an aseptic meningitis given that the CSF Gram stain is negative for any bacteria few white cells were seen. The patient also has no significant history of fevers chills rigors or meningismus. It is late summer and enteroviral infections or common and may cause aseptic meningitis. There is also a case of [place] in a [place] in consultation also be considered in this workup is all been requested and the CSF has been sent to the laboratory. Given that it is summer further testing was also requested for Lyme as well as VDRL is pending at this time. The patient was treated with extensive antibiotic therapy, and this will be streamlined to just Rocephin this point in time pending further data. The patient does not have evidence of bacterial meningitis and does not require any type of isolation, and no evidence of prophylaxis is required of any healthcare workers. He fortunately is having improvement will expect his discharge in the next day or so Current Visit: Yes Status: Acute Code(s): G03.0 - NONPYOGENIC MENINGITIS SNOMED Code(s): 609795899
[2018-07-03] MEDS: cefTRIAXone IN SWFI 1,000 MG/10 ML SYRINGE IVP SCH (17:40)
[2018-07-03] MEDS: LISINOPRIL 20 MG TAB PO SCH (19:51)
[2018-07-03] MEDS: ATORVASTATIN 40 MG TAB PO SCH (19:51)
[2018-07-04] MEDS: ACETAMINOPHEN TAB 500 MG TAB PO PRN (00:06)
[2018-07-04] MEDS: PANTOPRAZOLE 40 MG TABLET PO SCH (06:19)
[2018-07-04 06:25] LABS: Basophils % (A) 1 %; Eosinophils # (A) 0.2 k/uL (0-0.7); Eosinophils % (A) 7 %; HCT 38.7 % (39.0-53.0); HGB 13.2 gm/dL (13.0-17.5); Lymphocytes # (A) 1.1 k/uL (1.0-4.8); Lymphocytes % (A) 29 %; MCH 30.1 pg (25.0-35.0); MCHC 34.2 g/dL (31.0-37.0); MCV 88.1 fL (80.0-100.0); Mean Platelet Volume 7.9; Monocytes # (A) 0.4 k/uL (0-1.0); Monocytes % (A) 9 %; Neutrophils # (A) 1.9 k/uL (1.3-7.7); Neutrophils % (A) 52 %; Platelet Count 124 k/uL (150-450); RBC 4.39 m/uL (4.30-5.90); RDW 14.3 % (11.5-15.5); WBC 3.7 k/uL (3.8-10.6)
[2018-07-04 06:38] LABS: Anion Gap 9 mmol/L; Blood Urea Nitrogen 11 mg/dL (9-20); Calcium 8.9 mg/dL (8.4-10.2); Carbon Dioxide 25 mmol/L (22-30); Chloride 108 mmol/L (98-107); Glucose 96 mg/dL (74-99); Potassium 4.2 mmol/L (3.5-5.1); Sodium 142 mmol/L (137-145)
[2018-07-04] MEDS: ENOXAPARIN 40 MG/0.4 ML SYRINGE SQ SCH (08:31)
--- NOTE | 2018-07-04 09:17 | P.PN ---
Subjective Progress Note Date: 07/03/18 This patient is a 47-year-old male who was admitted to hospital yesterday for symptoms of TIA and chronic headache. Patient was admitted with severe headache symptoms which responded yesterday to combination of [place] and Toradol injections. His headaches are much better today and he was sent for MRI MRA of the brain. MRA of the brain was completed and is normal with no evidence of cerebral aneurysm. MRI results of the brain are still pending today. Patient also underwent carotid Doppler ultrasound which came back negative with no evidence of carotid artery stenosis. He was scheduled to undergo lumbar puncture today however this was not completed. Apparently anesthesia is aware of this request and we will see if this can be completed to rule out any possibility of meningitis however this seems less likely. Patient otherwise seems to be doing fairly well. His headache symptoms have improved from initial presentation. Patient did undergo MRI of the brain and MRA of the brain results of which were reviewed today with the patient. Both studies came back normal with no evidence of any acute abnormalities. Patient states he does suffer from sinus and ALLERGIES which may be a contributing factor for his headache symptoms. He is still awaiting to have lumbar puncture procedure done tomorrow morning by anesthesia and we will await those results. 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 Patient was seen by anesthesia this morning however his lumbar puncture was canceled as he had been given Lovenox this morning. Anesthesia will once again try to complete the procedure tomorrow and have instructed nursing staff to hold his Lovenox tomorrow morning. Neurologically the patient remains very much intact. Doubt that he has meningitis based on his clinical exam findings today. Once again due to his immunocompromised state we would recommend a complete the lumbar puncture for complete evaluation. His lumbar puncture procedure has been rescheduled for this morning. His lumbar puncture was completed today. Results of the spinal fluid analysis revealed RBC count of 1 wbc count of 232. 99% were mononuclear white cells. One percent polynuclear white cells. CSF protein was 122 and CSF glucose 37. We have reviewed the spinal fluid results in detail today with the patient. These findings are highly suggesting aseptic meningitis or a viral meningitis as a cause for the spinal fluid findings. His headaches have been better today and he rates them is 2/10 in intensity. Initially on admission he was 10 over 10. Fortunately the spinal tap was able to be completed today. This was our concern for this patient given the fact that he is on immunosuppressant medications. We recommend that he remain off of Humira until he is reevaluated by his workforce development specialist Dr. Colby when he may be considered for restarting. His neurological examination today is nonfocal. We will continue close neurological follow-up the patient. We reviewed all of his test results in detail today with the patient including his lumbar puncture results. We would recommend symptomatic treatment of his headache pain. We are also recommending an infectious disease consultation with Dr. Hogan. We will await any further recommendations per other specialists seen this patient. He was seen by ENT today and has findings suggesting ALLERGIC rhinitis. This is not a cause of his headaches. We will continue close neurological follow-up for this patient. His overall prognosis remains guarded. Objective - Vital Signs Vital signs: Vital Signs Temp 98.5 F 07/03/18 08:00 Pulse 63 07/03/18 08:00 Resp 18 07/03/18 08:00 BP 128/74 07/03/18 08:00 Pulse Ox 95 07/03/18 08:00 Intake & Output 07/02/18 07/03/18 07/03/18 18:59 06:59 18:59 Intake Total 440 1000 240 Output Total 400 Balance 40 1000 240 Weight 101 kg Intake: IV 200 Intake, IV Titration 600 Amount Sodium Chloride 0.9% 1, 100 000 ml @ 0 mls/hr IV [facility] Rx#:[id number] Vancomycin 1,750 mg In 500 Sodium Chloride 0.9% 500 ml @ 167 mls/hr IVPB Q12H [facility] Rx#:[id number] Oral 240 400 240 Output: Urine 400 Other: Voiding Method Toilet Toilet Toilet Urinal Urinal Urinal # Voids 1 2 - Exam Physical examination: PHYSICAL EXAMINATION: Patient is resting comfortably in bed. VITAL SIGNS: Blood pressure is [154/78]. Heart rate is [60]. Respiration is [17] . Temperature is [98.0]. HEENT: Head is atraumatic, neck is supple, there were no carotid bruits. CHEST: Lungs are clear to auscultation and percussion. CARDIAC: S1, S2 normal rate and rhythm. There is no murmur. ABDOMEN: Soft and nontender. Bowel sounds are present. EXTREMITIES: There is no pedal edema. Peripheral pulses are present. Neurological examination: Patient has a nonfocal neurological examination today. Patient's headache symptoms are much improved today. - Labs CBC & Chem 7: 07/04/18 06:08 07/04/18 06:08 Labs: Abnormal Lab Results - Last 24 Hours (Table) 07/02/18 07/03/18 07/03/18 Range/Units 09:52 05:58 05:58 WBC 3.3 L (3.8-10.6) k/uL RBC 4.14 L (4.30-5.90) m/uL Hgb 12.6 L (13.0-17.5) gm/dL Hct 36.7 L (39.0-53.0) % Plt Count 109 L (150-450) k/uL Chloride 110 H (98-107) mmol/L CSF Tot Nucleated Cells 232 H (0-5) u/L CSF Glucose 37 L (40-70) mg/dL CSF Total Protein 122 H (12-60) mg/dL Microbiology - Last 24 Hours (Table) 07/02/18 09:52 CSF Gram Stain - Preliminary Cerebral Spinal Fluid CSF Culture - Preliminary Assessment and Plan (1) TIA (transient ischemic attack) Current Visit: Yes Status: Acute Code(s): G45.9 - TRANSIENT CEREBRAL ISCHEMIC ATTACK, UNSPECIFIED SNOMED Code(s): 743544201 (2) Chronic headache Current Visit: Yes Status: Acute Code(s): R51 - HEADACHE SNOMED Code(s): 310966040 (3) Rheumatoid arthritis Current Visit: Yes Status: Acute Code(s): M06.9 - RHEUMATOID ARTHRITIS, UNSPECIFIED SNOMED Code(s): 93401227 (4) Near syncope Current Visit: Yes Status: Acute Code(s): R55 - SYNCOPE AND COLLAPSE SNOMED Code(s): 703773203 Plan: This patient is a 47-year-old right-handed white male who was admitted to [facility] for evaluation of chronic headaches and left-sided numbness. Patient developed sudden left arm face and leg numbness that came on suddenly and lasted about 1 hour in duration and quickly resolved. He has been dealing with chronic headaches for over 2 months. He has a history of underlying rheumatoid arthritis and does follow with the workforce development specialist. He has been taking Humira as primary treatment for his RA. The patient was evaluated in the emergency room by Dr. Xie. He underwent a computed tomography scan of the brain which was reported normal with no acute intracranial abnormality. On examination at bedside the patient is afebrile. He has no nuchal rigidity or neck stiffness on examination. We have recommended the patient to complete a lumbar puncture tomorrow morning to rule out any signs of infection given his immunocompromised state secondary to his rheumatoid arthritis and long-term use of Humira. The patient could not complete lumbar puncture this morning as he was continued on Lovenox. His Lovenox will be discontinued and a reattempt for lumbar puncture will be done tomorrow morning. We have recommended a complete stroke evaluation for this patient. His history suggests right hemispheric TIA. We will order MRI/MRA of the brain for this patient. Patient was able to complete MRI/MRA of the brain today. Results are as noted above. Both studies did come back normal and we review the results today with the patient. 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 He was able to have lumbar puncture completed today results of which are noted above. CSF findings are highly suggesting aseptic or viral meningitis. We have consulted infectious disease for any further recommendations. We will continue symptomatic treatment of his headache pain. He was seen by ENT and has ALLERGIC rhinitis which is not a cause of his headaches. Hopefully this is a symptomatic headache which should resolve as the aseptic meningitis improves with time. Given the fact that the patient is immunocompromised and is currently taking Humira we would recommend to continue to hold his Humira until he is reevaluated by his workforce development specialist Dr. Colby. We have discussed the results of the lumbar puncture in detail today with the patient. He is aware of the finding of aseptic meningitis. We will await further recommendations from Dr. Hogan from infectious disease to evaluate these LP results. Review of Dr. Hogan consultation indicates he has ordered several other testing to be done on the spinal fluid. Patient remains very stable and his headache pain is much improved today. Most likely he will be able to be discharged home tomorrow. He should follow-up in the outpatient neurology clinic in 2-3 weeks. His prognosis at this time remains guarded. We will continue close neurological follow-up with this patient during this admission.
--- NOTE | 2018-07-04 10:08 | P.PN ---
Subjective Progress Note Date: 07/04/18 Principal diagnosis: Aseptic meningitis Patient was seen and examined. No acute events overnight. Headache resolved. Patient looking for to going home. Objective - Vital Signs Vital signs: Vital Signs Temp 97.9 F 07/04/18 04:00 Pulse 60 07/04/18 04:00 Resp 17 07/04/18 04:00 BP 154/73 07/04/18 04:00 Pulse Ox 98 07/04/18 04:00 Intake & Output 07/03/18 07/04/18 07/04/18 18:59 06:59 18:59 Intake Total 476 550 Output Total 350 Balance 476 200 Weight 100.8 kg Intake: Oral 476 550 Output: Urine 350 Other: Voiding Method Toilet Toilet Urinal # Voids 1 3 - Exam General: No acute distress, appears at stated age Derm: warm, dry Neck: Normal range of motion. no JVD. Head: atraumatic, normocephalic, symmetric Eyes: EOMI, no lid lag, anicteric sclera Mouth: no lip lesion, mucus membranes moist Cardiovascular: S1S2 reg, no murmur, positive posterior tibial pulse bilateral Lungs: CTA bilateral, no rhonchi, no rales , no accessory muscle use Abdominal: soft, nontender to palpation, no guarding, no appreciable organomegaly Ext: no gross muscle atrophy, no edema, no contractures Neuro: CN II-XI grossly intact, strength 5 out of 5 in all 4 extremities, sensation intact to touch in all 4 extremities Psych: Alert, oriented, appropriate affect - Labs CBC & Chem 7: 07/04/18 06:08 07/04/18 06:08 Labs: Abnormal Lab Results - Last 24 Hours (Table) 07/04/18 07/04/18 Range/Units 06:08 06:08 WBC 3.7 L (3.8-10.6) k/uL Hct 38.7 L (39.0-53.0) % Plt Count 124 L (150-450) k/uL Chloride 108 H (98-107) mmol/L Microbiology - Last 24 Hours (Table) 07/02/18 09:52 CSF Gram Stain - Preliminary Cerebral Spinal Fluid CSF Culture - Preliminary Assessment and Plan Assessment: Assessment and plan 1. Aseptic Meningitis - Likely to be Migraine but given history and PMH need to r/o CVA and Meningitis given immunocompromised state. - r/o CVA - CT brain negative - Echo shows EF 55-60% - Lipid panel shows LDL 49 T. Chol 120 TG 210 - MRA neck: Normal - MRI brain: Negative - r/o Meningitis - LP performed 07/02 - CSF analysis shows 232 total nucleated cells, 99% lymphocytic, low glucose of 37, elevated total protein of 122. - HSV negative. Procalcitonin 0.07 within normal limits. - Patient evaluated by ENT for possible sinusitis cause of headache. CT of the sinus shows mucous retention cysts in the maxillary sinus. Advised to FU outPT, not the cause of BUSTOS. - Pain control: Tylenol 500 mg PO Q6H, Toradol 30 mg IV Q6H PRN, [place] 10 PRN - Antibiotics: Ceftriaxone IV QD, Vancomycin IV DC'd as per ID request. - Patient is afebrile with no leukocytosis. CSF analysis pointing towards aseptic meningitis. Continue IV Ceftriaxone. FU CSF Cx, VDRL, Borrelia, [place], Quantiferon 2. HTN: BP 154/73. Continue Lisinopril 20 mg PO QD. Monitor vitals, adjust medications as necessary. 3. RA: On Humira at home. Hold. 4. DVT/GI Prophylaxis: Lovenox 40 SUBCUT QD. Protonix 40 mg PO QD. Stroke ruled out. Patient continues to show great improvement. LP showing possible viral meningitis. Quantiferon cancelled, will advise to do outPT. Likely DC today. Patient to follow up with ID for culture results.
[2018-07-04 10:14] VITALS: RESP 16
--- NOTE | 2018-07-04 10:54 | P.DS ---
Providers Date of admission: 07/02/18 14:12 Expected date of discharge: 07/04/18 Attending physician: Adeline De Dios DO Consults: 06/29/18 13:58 Consult Physician Routine Consulting Provider: Jere Mcallister Consult Reason/Comments: TIA Do you want consulting provider notified?: Yes 06/29/18 17:21 Consult to Anesthesia Routine Consulting Provider: Anesthesia,Services Consult Reason/Comments: Need LP to rule out meningitis. 07/02/18 14:21 Consult Physician Urgent Consulting Provider: Christian Kohler Consult Reason/Comments: Possible sinusisit Do you want consulting provider notified?: Yes 07/02/18 20:15 Consult Physician Stat Consulting Provider: Yung Hogan Consult Reason/Comments: CSF fluid results Do you want consulting provider notified?: Yes Primary care physician: Yonathan Funez - Discharge Diagnosis(es) (1) HTN (hypertension) Current Visit: Yes Status: Acute (2) Allergic rhinitis Current Visit: Yes Status: Acute (3) Aseptic meningitis Current Visit: Yes Status: Acute (4) Rheumatoid arthritis Current Visit: Yes Status: Acute Hospital Course: Patient is a 47-year-old male with PMH of hypertension and rheumatoid arthritis that presents to the emergency department for headache, night sweats, left- sided tingling. Patient is accompanied by his who is giving me the history. Patient currently has a towel over his head, states he cannot speak because it worsens his migraine. Patient reports headache over the past 2 months, progressively getting worse. Over the last week, patient has been experiencing multiple episodes of nausea and vomiting, photophobia, tunnel vision. His headaches are also associated with fevers, night sweats, stiff neck. Patient reports that his headache started after his PCP started him on hydrochlorothiazide 12.5 mg by mouth daily. However, discontinuation of hydrochlorothiazide over the last 30 days has not resulted in relief of his headache. Patient decided to seek medical attention when he started to experience numbness and tingling that started in his left leg and worked up to his left lower base, neck, shoulder and arm. 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 In the ED, CT of the head was negative. Chest x-ray was normal. EKG showed normal sinus rhythm. Patient is admitted for CVA workup. His headache was thought to be likely secondary to migraines, but given the immunocompromised history plans were to rule out meningitis and rule out stroke. Stroke workup was unremarkable. MRI brain was negative. MRA neck was normal. Lipid panel showed LDL 44 total cholesterol of 120 and triglyceride of 210. Echocardiogram showed ejection fraction of 55-60%. Patient was empirically started on ceftriaxone and vancomycin IV for possible meningitis. Lumbar puncture was performed on 07/02/2018. CSF analysis showed 232 total nucleated cells with 99% lymphocytic predominance, a low glucose of 37 , and an elevated total protein of 122. Infectious disease was consulted at this time for this aseptic meningitis and recommended obtaining VDRL, Borriella , [place], HSV, pro-calcitonin. HSV was negative, pro-calcitonin was 0.07 within normal limits. Patient was also evaluated by ENT for CT findings of sinusitis. ENT recommended outpatient follow-up and that this was not the cause of his headaches. His headaches were controlled effectively with Tylenol, [place], Toradol as needed. Patient was advised to follow-up with his primary care provider within 1-2 days of discharge. Patient was advised to follow-up with infectious disease Dr. Hogan within 1 week of discharge. Patient was told to take his medications as advised. Patient was advised to come to the ED or call 911 if he experience worsening headaches, fever, night sweats. Patient was advised to obtain a QuantiFERON TB Gold test with his PCP. This complex discharge took greater than 30 minutes. General: No acute distress, appears at stated age Derm: warm, dry Neck: Normal range of motion. no JVD. Head: atraumatic, normocephalic, symmetric Eyes: EOMI, no lid lag, anicteric sclera Mouth: no lip lesion, mucus membranes moist Cardiovascular: S1S2 reg, no murmur, positive posterior tibial pulse bilateral Lungs: CTA bilateral, no rhonchi, no rales , no accessory muscle use Abdominal: soft, nontender to palpation, no guarding, no appreciable organomegaly Ext: no gross muscle atrophy, no edema, no contractures Neuro: CN II-XI grossly intact, strength 5 out of 5 in all 4 extremities, sensation intact to touch in all 4 extremities Psych: Alert, oriented, appropriate affect Pertinent Studies: CT brain MRI brain MRA brain Echocardiogram Procedures: Lumbar puncture Patient Condition at Discharge: Stable Plan - Discharge Summary Discharge Rx Participant: No New Discharge Prescriptions: New Fluticasone Nasal [place] [Flonase Nasal [place]] 2 spray EA NOSTRIL DAILY PRN # 0 spr PRN Reason: Allergy Symptoms Ketorolac [Toradol] 10 mg PO Q6HR #20 tab Loratadine [Claritin] 10 mg PO DAILY PRN #30 tab PRN Reason: Sinus Symptoms Continue Lisinopril [Zestril] 20 mg PO HS traMADol HCl [Ultram] 50 mg PO TID PRN PRN Reason: Pain Ibuprofen [Motrin] 800 mg PO TID PRN PRN Reason: Pain Atorvastatin [Lipitor] 40 mg PO HS Adalimumab [Humira Pen] 40 mg SQ MO Acetaminophen Tab [Tylenol] 500 - 1,000 mg PO Q6H PRN PRN Reason: Migraine Headache Changed Hydrocodone/Acetaminophen [[place] 10-325] 1 tab PO Q4HR PRN #18 tablet PRN Reason: Pain Discharge Medication List Lisinopril [Zestril] 20 mg PO HS 04/19/14 [History] traMADol HCl [Ultram] 50 mg PO TID PRN 04/19/14 [History] Acetaminophen Tab [Tylenol] 500 - 1,000 mg PO Q6H PRN 06/29/18 [History] Adalimumab [Humira Pen] 40 mg SQ MO 06/29/18 [History] Atorvastatin [Lipitor] 40 mg PO HS 06/29/18 [History] Ibuprofen [Motrin] 800 mg PO TID PRN 06/29/18 [History] Fluticasone Nasal [place] [Flonase Nasal [place]] 2 spray EA NOSTRIL DAILY PRN #0 spr 07/04/18 [Rx] Hydrocodone/Acetaminophen [[place] 10-325] 1 tab PO Q4HR PRN #18 tablet 07/04/18 [ Rx] Ketorolac [Toradol] 10 mg PO Q6HR #20 tab 07/04/18 [Rx] Loratadine [Claritin] 10 mg PO DAILY PRN #30 tab 07/04/18 [Rx] Follow up Appointment(s)/Referral(s): Jere Mcallister MD [STAFF PHYSICIAN] - 1 Week Christian Kohler DO [Doctor of Osteopathic Medicine] - 1 Week Yonathan Funez MD [Primary Care Provider] - 07/07/18 11:45 am (Saturday) Patient Instructions/Handouts: Viral Meningitis (DC), Allergic Rhinitis (DC) Activity/Diet/Wound Care/Special Instructions: Diet: Low salt diet. Please follow-up with her primary care provider within 1-2 days of discharge. Please follow-up with ENT with the appointment given to you. These follow-up with neurology with the appointment given to you. Please follow-up with infectious disease with the appointment given to you. Please obtain a QuantiFERON TB Gold test through your PCP. Discharge Disposition: HOME SELF-CARE Pending Studies Pending Results: CSF analysis for cultures Patient needs a TB Quantiferon test through his PCP
[2018-07-04] MEDS ORDERED: VANCOMYCIN TROUGH DUE 1 EACH MISC MISCELLANE ONE (11:00)
[2018-07-04 11:41] LABS: VDRL, Qualitative CSF Nonreactive (Nonreactive)
[2018-07-04 15:12] VITALS: BP 112/56; PULSE 62; TEMP 97
[2018-07-07 13:36] LABS: West Nile Virus IgM Antibody 0.05 INDEX (<0.90)
== END 2018-07-04 15:18 | disposition home or self-care (01) | DRG 99 ==
LOC: EC 12:18 → 6SEL 13:58 → OBSVTOIN 07-02 14:12 → 6SEL 07-02 23:08
PROVIDERS: ADMIT Internal Medicine; ATTEND Internal Medicine
PROC: 009U3ZX Drainage of Spinal Canal, Percutaneous Approach, Diagnostic (ICD-10-PCS; principal; 2018-07-02 09:45)
DX: G03.0 Nonpyogenic meningitis (principal); F41.9 Anxiety disorder, unspecified; G89.29 Other chronic pain; I10 Essential (primary) hypertension; J30.9 Allergic rhinitis, unspecified; K76.0 Fatty (change of) liver, not elsewhere classified; M06.9 Rheumatoid arthritis, unspecified; M19.90 Unspecified osteoarthritis, unspecified site; Z79.899 Other long term (current) drug therapy; Z87.891 Personal history of nicotine dependence; Z79.1 Long term (current) use of non-steroidal anti-inflammatories (NSAID); Z88.2 Allergy status to sulfonamides
CPT/HCPCS: 36415; 62270; 70450; 70486; 70544; 70551; 71046; 80048; 80053; 80061; 80202; 82550; 82553; 82945; 83036; 84145; 84157; 84484; 85025; 85610; 85730; 86592; 86788; 86789; 87070; 87205; 87252; 87476; 87496; 87498; 87529; 87798; 89050; 93005; 93306; 93880; 95816; 96361; 96374; 99285

== ENCOUNTER → 2018-08-21 | Outpatient (CLI) | payer MEDICARE ==
[2018-08-21 19:38] LABS: Cardiolipin Ab IgG Interp NEGATIVE (NEGATIVE); Cardiolipin Ab IgM Interp NEGATIVE (NEGATIVE); Cardiolipin IgA Antibody >65.0 U/mL
[2018-08-22 10:47] LABS: Protein C Antigen 122 % (72-160)
[2018-08-22 13:24] LABS: APTT 36 Sec(s) (<43); Dilute Russell Viper Venom 40 Sec(s) (<44)
== END | disposition home or self-care (01) ==
LOC: LABWHC1 12:17
PROVIDERS: ATTEND Psychiatry & Neurology Neurology
DX: Z09 Encounter for follow-up examination after completed treatment for conditions other than malignant neoplasm (principal); Z86.73 Personal history of transient ischemic attack (TIA), and cerebral infarction without residual deficits
CPT/HCPCS: 36415; 81241; 81291; 85302; 85613; 85730; 86147

== ENCOUNTER → 2021-08-14 | Outpatient (CLI) | payer MEDICARE ==
--- NOTE | 2021-08-14 13:01 | US ---
EXAMINATION TYPE: US liver DATE OF EXAM: 08/14/2021 COMPARISON: US 04/25/17, 04/22/14 CLINICAL HISTORY: R74.01 elevated liver enzymes. EXAM MEASUREMENTS: Liver Length: 21.3 cm. Normal less than 15.5 cm. Gallbladder Wall: 0.2 cm CBD: 0.3 cm Right Kidney: 11.3 x 5.5 x 5.2 cm Pancreas: Obscured by bowel gas Liver: Increased attenuation, decreased visualization of vessels suggestive of fatty infiltrate, are as of focal sparing near GB Gallbladder: with multiple foci Evidence for sonographic Gao's sign: No CBD: wnl Right Kidney: No hydronephrosis or masses seen IMPRESSION: 1. Cholelithiasis. Additional changes suggest acute cholecystitis is not evident. 2. Fatty infiltration of liver with hepatomegaly
== END | disposition home or self-care (01) ==
LOC: RADUSWWP 08:09
PROVIDERS: ATTEND Family Medicine
DX: K76.0 Fatty (change of) liver, not elsewhere classified (principal); K80.20 Calculus of gallbladder without cholecystitis without obstruction; R16.0 Hepatomegaly, not elsewhere classified
CPT/HCPCS: 76705

== ENCOUNTER 2021-09-15 06:58 | Day surgery (SDC) | payer MEDICARE ==
[2021-09-13 14:45] VITALS: BMI 31.6
[~2021-09-15 06:58] MED LIST: LACTATED RINGERS 1,000 ML IV SCH
[2021-09-15 07:20] VITALS: TEMP 97.9
[2021-09-15 07:36] LABS: Glucose,Whole Blood 138 mg/dL (75-99)
[2021-09-15] MEDS ORDERED: PROPOFOL 10 MG/ML 20 ML VIAL IV ONE (08:15)
--- NOTE | 2021-09-15 08:32 | P.PCN ---
Date of Procedure: 09/15/21 Procedure(s) Performed: BRIEF HISTORY: Patient is a 51-year-old pleasant white male scheduled for an elective colonoscopy as a part of screening for colorectal neoplasia. PROCEDURE PERFORMED: Colonoscopy with snare polypectomy. PREOPERATIVE DIAGNOSIS: Screening for colon cancer. IV sedation per Anesthesia. PROCEDURE: After informed consent was obtained, the patient, was brought into the endoscopy unit. IV sedation was administered by Anesthesia under continuous monitoring. Digital rectal examination was normal. Initially the Olympus CF-160 flexible video colonoscope was then inserted in the rectum, gradually advanced into the cecum without any difficulty. Careful examination was performed as the scope was gradually being withdrawn. Ileocecal valve and the appendiceal orifice were visualized and appeared normal. Prep was excellent. In the cecum there was a 1 cm broad-based polyp that was removed by snare polypectomy. Mucosa of the cecum, ascending colon, transverse colon, descending colon, sigmoid colon, and rectum appeared normal. Retroflexion was performed in the rectum and no le sions were seen. The patient tolerated the procedure well. IMPRESSION: 1 cm broad-based cecal polyp status post polypectomy Rest of the colon appeared normal RECOMMENDATIONS: Findings of this examination were discussed with the patient as well as his family. He was advised to follow with the biopsy results. If the biopsy does reveal adenoma he can have a repeat colonoscopy in 3 years.
[2021-09-15 08:43] VITALS: RESP 16
[2021-09-15 08:58] VITALS: BP 122/74; PULSE 77
== END 2021-09-15 09:05 | disposition home or self-care (01) ==
LOC: ORWHC2ENDO 06:58
PROVIDERS: ATTEND Internal Medicine Gastroenterology
DX: Z12.11 Encounter for screening for malignant neoplasm of colon (principal); D12.0 Benign neoplasm of cecum; I10 Essential (primary) hypertension; E78.5 Hyperlipidemia, unspecified; E11.9 Type 2 diabetes mellitus without complications; Z79.84 Long term (current) use of oral hypoglycemic drugs
CPT/HCPCS: 45385; 88305; J2704

== ENCOUNTER 2024-11-13 12:35 | Day surgery (SDC) | payer MEDICARE ==
[2024-11-13 13:57] VITALS: TEMP 97.9
[2024-11-13] MEDS: IV FLUID CONTINUATION 1,000 ML IV ONE (14:05)
[2024-11-13] MEDS: LACTATED RINGERS 1,000 ML IV SCH (14:09)
[2024-11-13] MEDS ORDERED: PROPOFOL 10 MG/ML 20 ML VIAL IV ONE (15:10)
--- NOTE | 2024-11-13 15:26 | P.PCN ---
Date of Procedure: 11/13/24 Procedure(s) Performed: BRIEF HISTORY: Patient is a 54-year-old pleasant white meat scheduled for an elective colonoscopy as a part of screening for colon cancer. PROCEDURE PERFORMED: Colonoscopy with biopsy. PREOPERATIVE DIAGNOSIS: Screening for colon cancer. IV sedation per Anesthesia. PROCEDURE: After informed consent was obtained, the patient, was brought into the endoscopy unit. IV sedation was administered by Anesthesia under continuous monitoring. Digital rectal examination was normal. Initially the Olympus CF-160 flexible video colonoscope was then inserted in the rectum, gradually advanced into the cecum without any difficulty. Careful examination was performed as the scope was gradually being withdrawn. Ileocecal valve and the appendiceal orifice were visualized and appeared normal. Prep was excellent. Mucosa of the cecum, ascending colon, transverse colon, normal. The descending colon there was a 3 mm polyp that was removed by cold biopsy. In the sigmoid colon there were 2 polyps measuring 3 to 4 mm in size both of which were removed by cold biopsy. Moderate sigmoid diverticulosis seen. Rest of the descending colon, sigmoid colon, and rectum appeared normal. . Retroflexion was performed in the rectum and no lesions were seen. The patient tolerated the procedure well. IMPRESSION: 3 mm descending colon polyp status post cold biopsy 4 mm x 2 sigmoid colon polyp status post cold biopsy Scattered sigmoid diverticulosis RECOMMENDATIONS: Findings of this examination were discussed with the patient as well as his family. He was advised to follow-up with the biopsy results. If the biopsy reveals adenoma he can have repeat colonoscopy in 5 years.
[2024-11-13 15:50] VITALS: BP 113/76; PULSE 60; RESP 18
== END 2024-11-13 16:05 ==
LOC: ORWHC2ENDO 12:35
PROVIDERS: ATTEND Internal Medicine Gastroenterology
DX: Z12.11 Encounter for screening for malignant neoplasm of colon (principal); D12.4 Benign neoplasm of descending colon; K57.30 Diverticulosis of large intestine without perforation or abscess without bleeding; I10 Essential (primary) hypertension; E78.5 Hyperlipidemia, unspecified; F41.9 Anxiety disorder, unspecified; K75.81 Nonalcoholic steatohepatitis (NASH); Z79.620 Long term (current) use of immunosuppressive biologic; Z79.899 Other long term (current) drug therapy; Z88.2 Allergy status to sulfonamides
CPT/HCPCS: 88305; 45380; J2704